=== PATIENT | male | born 1965 | race Caucasian/White ===

== ENCOUNTER 2020-07-02 11:01 | Emergency (ER) | payer OTHER ==
[2020-07-02 11:06] VITALS: BP 158/89; PULSE 80; TEMP 98.7; BMI 45.4
[2020-07-02] MEDS ORDERED: KETOROLAC TROMETHAMINE 30 MG/1 ML VIAL IVPUSH ONE (11:49)
[2020-07-02] MEDS ORDERED: SODIUM CHLORIDE 0.9% 500 ML INFUS.BAG IV ONE (11:49)
[2020-07-02 12:44] LABS: EPI CELLS 3 /uL (0-25.1); HYALINE CASTS 0 /uL (0-3.1); URINE APPEARANCE CLEAR; URINE BACTERIA 176 /uL (0-1359); URINE BILIRUBIN NEGATIVE (NEGATIVE); URINE COLOR YELLOW; URINE GLUCOSE (UA) NEGATIVE (NEGATIVE); URINE KETONE NEGATIVE (NEGATIVE); URINE LEUK ESTERASE NEGATIVE (NEGATIVE); URINE NITRITE NEGATIVE (NEGATIVE); URINE PROTEIN NEGATIVE (NEGATIVE); URINE RBC 6 /uL (0-23.9); URINE UROBILINOGEN 0.2 mg/dL (0.2-1.0); URINE WBC 3 /uL (0-25.8)
[2020-07-02 12:48] LABS: CALCIUM 9.1 mg/dL (8.5-10.1)
[2020-07-02 12:49] LABS: ALBUMIN 3.8 g/dl (3.4-5.0); BLOOD UREA NITROGEN 19.2 mg/dL (7-18)
[2020-07-02 12:53] LABS: BILIRUBIN,TOTAL 0.5 mg/dL (0.2-1); TOT PROT 7.8 g/dl (6.4-8.2)
[2020-07-02 13:52] LABS: BASO % 0.6 % (0-2.0); EOS % 2.8 % (0-4.5); HEMATOCRIT 42.7 % (35.4-49); HEMOGLOBIN 14.5 GM/dL (11.7-16.9); LYMPH % 34.4 % (8-40); MCH 31.4 pg (25.7-33.7); MEAN CELL VOLUME 92.2 fl (80-96); MONO % 9.9 % (3.8-10.2); NEUT % 52.3 % (42.8-82.8); PLATELET COUNT 271 K/MM3 (134-434); RBC 4.63 M/mm3 (4.00-5.60); RDW 13.3 % (11.9-15.9); WHITE BLOOD COUNT 7.9 K/mm3 (4.0-10.0)
== END 2020-07-02 15:01 | disposition home or self-care (01) ==
LOC: JER 11:01
PROC: 3E0333Z Introduction of Anti-inflammatory into Peripheral Vein, Percutaneous Approach (ICD-10-PCS; principal; 2020-07-02)
DX: M54.5 Low back pain (principal)
CPT/HCPCS: 36415; 74176-TC; 80053; 81003; 82550; 85025; 87086; 99284-25

== ENCOUNTER 2021-02-22 13:38 | Emergency (ER) | payer OTHER ==
[2021-02-22 13:47] VITALS: BMI 45.4
[2021-02-22] MEDS ORDERED: LIDOCAINE HCL 2% JELLY 10 ML CARTRIDGE UR ONE (15:22)
[2021-02-22] MEDS ORDERED: LIDOCAINE HCL 2% JELLY 10 ML CARTRIDGE ONE (15:55)
[2021-02-22 16:59] LABS: BASO % 0.3 % (0-2.0); HEMATOCRIT 43.9 % (35.4-49); HEMOGLOBIN 14.6 GM/dL (11.7-16.9); LYMPH % 12.5 % (8-40); MCH 30.1 pg (25.7-33.7); MCHC 33.4 g/dl (32.0-35.9); MEAN CELL VOLUME 90.2 fl (80-96); MEAN PLT VOLUME 8.6 fl (7.5-11.1); MONO % 7.4 % (3.8-10.2); NEUT % 79.8 % (42.8-82.8); PLATELET COUNT 267 10^3/uL (134-434); RBC 4.87 M/mm3 (4.00-5.60); RDW 13.6 % (11.9-15.9); WHITE BLOOD COUNT 9.7 K/mm3 (4.0-10.0)
[2021-02-22 17:01] VITALS: PULSE 105; TEMP 97.8
[2021-02-22 17:16] LABS: EPI CELLS 6 /uL (0-25.1); HYALINE CASTS 1 /uL (0-3.1); PH,URINE 5.5 (5.0-8.0); URINE APPEARANCE CLEAR; URINE BACTERIA 10 /uL (0-1359); URINE BILIRUBIN NEGATIVE (NEGATIVE); URINE COLOR DK YELLOW; URINE GLUCOSE (UA) NEGATIVE (NEGATIVE); URINE KETONE TRACE (NEGATIVE); URINE LEUK ESTERASE NEGATIVE (NEGATIVE); URINE NITRITE NEGATIVE (NEGATIVE); URINE PROTEIN 1+ (NEGATIVE); URINE RBC 34 /uL (0-23.9); URINE UROBILINOGEN 0.2 mg/dL (0.2-1.0); URINE WBC 8 /uL (0-25.8)
[2021-02-22 18:03] LABS: CALCIUM 9.3 mg/dL (8.5-10.1)
[2021-02-22 18:04] LABS: ALBUMIN 4.1 g/dl (3.4-5.0); BLOOD UREA NITROGEN 21.8 mg/dL (7-18)
[2021-02-22 18:08] LABS: BILIRUBIN,TOTAL 0.7 mg/dL (0.2-1); TOT PROT 7.6 g/dl (6.4-8.2)
[2021-02-22 18:56] VITALS: BP 178/96
== END 2021-02-22 18:58 | disposition home or self-care (01) ==
LOC: JER 13:38
DX: R33.9 Retention of urine, unspecified (principal); Z46.6 Encounter for fitting and adjustment of urinary device
CPT/HCPCS: 36415; 80053; 81003; 85025; 87086; 99283-25

== ENCOUNTER 2021-02-24 01:41 | Emergency (ER) | payer OTHER ==
[2021-02-24 02:24] VITALS: BP 155/91; PULSE 92; TEMP 98; BMI 45.4
== END 2021-02-24 03:01 | disposition home or self-care (01) ==
LOC: JER 01:41
DX: R33.9 Retention of urine, unspecified (principal)
CPT/HCPCS: 99283-25

== ENCOUNTER 2021-03-31 00:24 | Emergency (ER) | payer OTHER ==
[2021-03-31 01:08] VITALS: BP 163/96; PULSE 98; TEMP 98.3; BMI 43.8
[2021-03-31] MEDS ORDERED: LIDOCAINE HCL 2% JELLY 10 ML CARTRIDGE UR ONE (01:34)
[2021-03-31] MEDS ORDERED: LIDOCAINE HCL 2% JELLY 10 ML CARTRIDGE ONE (01:40)
[2021-03-31 02:36] LABS: EPI CELLS >36 /uL (0-25.1); HYALINE CASTS 77 /uL (0-3.1); PH,URINE 5.5 (5.0-8.0); URINE APPEARANCE CLOUDY; URINE BACTERIA 9 /uL (0-1359); URINE BILIRUBIN 2+ (NEGATIVE); URINE COLOR DK YELLOW; URINE GLUCOSE (UA) NEGATIVE (NEGATIVE); URINE KETONE 1+ (NEGATIVE); URINE LEUK ESTERASE TRACE (NEGATIVE); URINE NITRITE NEGATIVE (NEGATIVE); URINE PROTEIN 2+ (NEGATIVE); URINE WBC 60 /uL (0-25.8)
[2021-03-31 02:56] LABS: BASO % 0.1 % (0-2.0); EOS % 0.6 % (0-4.5); HEMOGLOBIN 13.4 GM/dL (11.7-16.9); LYMPH % 18.4 % (8-40); MCH 30.5 pg (25.7-33.7); MCHC 33.5 g/dl (32.0-35.9); MEAN CELL VOLUME 91.1 fl (80-96); MEAN PLT VOLUME 9.6 fl (7.5-11.1); NEUT % 70.9 % (42.8-82.8); PLATELET COUNT 245 10^3/uL (134-434); RBC 4.39 M/mm3 (4.00-5.60); RDW 14.2 % (11.9-15.9); WHITE BLOOD COUNT 9.2 K/mm3 (4.0-10.0)
[2021-03-31 03:15] LABS: ALBUMIN 3.7 g/dl (3.4-5.0); BLOOD UREA NITROGEN 13.3 mg/dL (7-18)
[2021-03-31 03:18] LABS: CREATININE 1.2 mg/dL (0.55-1.3)
[2021-03-31 03:20] LABS: BILIRUBIN,TOTAL 0.6 mg/dL (0.2-1); TOT PROT 6.8 g/dl (6.4-8.2)
[2021-03-31 03:22] LABS: URINE RBC 30 /uL (0-23.9)
[2021-03-31] MEDS ORDERED: SODIUM CHLORIDE 1,000 ML IV STA (04:22)
[2021-03-31] MEDS ORDERED: ACETAMINOPHEN 325 MG TABLET (FP) PO ONE (04:36)
[2021-03-31] MEDS ORDERED: CEFTRIAXONE 1 GM in DEXTROSE 5%-WATER - 100 ML IVPB ONE (04:39)
[2021-03-31] MEDS ORDERED: CEFTRIAXONE 1 GM/50 ML BAG ONE (04:40)
[2021-03-31] MEDS ORDERED: ACETAMINOPHEN 325 MG TABLET (FP) ONE (04:40)
== END 2021-03-31 06:35 | disposition home or self-care (01) ==
LOC: JER 00:24
PROC: 3E03329 Introduction of Other Anti-infective into Peripheral Vein, Percutaneous Approach (ICD-10-PCS; principal; 2021-03-31)
PROC: 3E0337Z Introduction of Electrolytic and Water Balance Substance into Peripheral Vein, Percutaneous Approach (ICD-10-PCS; 2021-03-31)
DX: R33.9 Retention of urine, unspecified (principal); N39.0 Urinary tract infection, site not specified
CPT/HCPCS: 36415; 80053; 81003; 85025; 87086; 99284-25

== ENCOUNTER 2021-04-07 21:29 | Emergency (ER) | payer OTHER ==
[2021-04-07 21:37] VITALS: BP 154/91; PULSE 86; TEMP 98.4; BMI 42.3
[2021-04-07] MEDS ORDERED: LIDOCAINE HCL 2% JELLY 10 ML CARTRIDGE UR ONE (22:15)
[2021-04-07] MEDS ORDERED: LIDOCAINE HCL 2% JELLY 10 ML CARTRIDGE ONE (22:15)
[2021-04-07 22:48] LABS: BASO % 0.2 % (0-2.0); EOS % 0.6 % (0-4.5); HEMATOCRIT 39.9 % (35.4-49); HEMOGLOBIN 13.5 GM/dL (11.7-16.9); MCH 30.6 pg (25.7-33.7); MCHC 33.8 g/dl (32.0-35.9); MEAN CELL VOLUME 90.5 fl (80-96); MEAN PLT VOLUME 9.1 fl (7.5-11.1); NEUT % 66.2 % (42.8-82.8); PLATELET COUNT 264 10^3/uL (134-434); WHITE BLOOD COUNT 8.2 K/mm3 (4.0-10.0)
[2021-04-07 22:59] LABS: ALBUMIN 3.7 g/dl (3.4-5.0); BLOOD UREA NITROGEN 10.4 mg/dL (7-18)
[2021-04-07 23:02] LABS: CREATININE 0.9 mg/dL (0.55-1.3)
[2021-04-07 23:03] LABS: BILIRUBIN,TOTAL 0.6 mg/dL (0.2-1); TOT PROT 6.9 g/dl (6.4-8.2)
[2021-04-07 23:16] LABS: EPI CELLS 11 /uL (0-25.1); HYALINE CASTS 5 /uL (0-3.1); URINE APPEARANCE CLEAR; URINE BACTERIA 5 /uL (0-1359); URINE BILIRUBIN NEGATIVE (NEGATIVE); URINE COLOR YELLOW; URINE GLUCOSE (UA) NEGATIVE (NEGATIVE); URINE KETONE 2+ (NEGATIVE); URINE LEUK ESTERASE NEGATIVE (NEGATIVE); URINE NITRITE NEGATIVE (NEGATIVE); URINE PROTEIN 1+ (NEGATIVE); URINE RBC 42 /uL (0-23.9); URINE WBC 9 /uL (0-25.8)
[2021-04-07] MEDS ORDERED: ACETAMINOPHEN 325 MG TABLET (FP) PO ONE (23:23)
[2021-04-07] MEDS ORDERED: ACETAMINOPHEN 325 MG TABLET (FP) ONE (23:33)
== END 2021-04-08 00:05 | disposition home or self-care (01) ==
LOC: JER 21:29
DX: R33.9 Retention of urine, unspecified (principal)
CPT/HCPCS: 36415; 76775-TC; 76857; 80053; 81003; 85025; 87086; 99284-25

== ENCOUNTER 2021-04-13 23:39 | Emergency (ER) | payer OTHER ==
[2021-04-13 23:47] VITALS: BMI 41.5
[2021-04-14] MEDS ORDERED: ASPIRIN 81 MG CHEWABLE TABLETS PO ONE (00:39)
[2021-04-14] MEDS ORDERED: ASPIRIN 81 MG CHEWABLE TABLETS ONE (01:05)
[2021-04-14 01:56] LABS: BASO % 0.3 % (0-2.0); EOS % 1.7 % (0-4.5); HEMATOCRIT 38.9 % (35.4-49); HEMOGLOBIN 13.8 GM/dL (11.7-16.9); LYMPH % 28.1 % (8-40); MCH 31.8 pg (25.7-33.7); MCHC 35.6 g/dl (32.0-35.9); MEAN CELL VOLUME 89.1 fl (80-96); MEAN PLT VOLUME 9.4 fl (7.5-11.1); MONO % 11.9 % (3.8-10.2); PLATELET COUNT 252 10^3/uL (134-434); RBC 4.36 M/mm3 (4.00-5.60); WHITE BLOOD COUNT 8.2 K/mm3 (4.0-10.0)
[2021-04-14 02:03] LABS: INR 1.18 (0.83-1.09); PROTHROMBIN TIME (PATIENT) 13.6 SEC (9.7-13.0)
[2021-04-14 02:06] LABS: ACTIVATED PTT 33.7 SECONDS (25.2-36.5)
[2021-04-14 02:16] LABS: CALCIUM 8.9 mg/dL (8.5-10.1)
[2021-04-14 02:17] LABS: ALBUMIN 3.6 g/dl (3.4-5.0); BLOOD UREA NITROGEN 9.9 mg/dL (7-18); MAGNESIUM 1.6 mg/dL (1.8-2.4)
[2021-04-14 02:20] LABS: CREATININE 0.9 mg/dL (0.55-1.3)
[2021-04-14 02:22] LABS: BILIRUBIN,TOTAL 0.7 mg/dL (0.2-1); TOT PROT 6.9 g/dl (6.4-8.2)
[2021-04-14 08:46] LABS: EPI CELLS 18 /uL (0-25.1); HYALINE CASTS 5 /uL (0-3.1); PH,URINE 6.5 (5.0-8.0); URINE APPEARANCE CLEAR; URINE BACTERIA 14 /uL (0-1359); URINE BILIRUBIN NEGATIVE (NEGATIVE); URINE COLOR DK YELLOW; URINE GLUCOSE (UA) NEGATIVE (NEGATIVE); URINE KETONE TRACE (NEGATIVE); URINE LEUK ESTERASE NEGATIVE (NEGATIVE); URINE NITRITE NEGATIVE (NEGATIVE); URINE PROTEIN 1+ (NEGATIVE); URINE RBC 651 /uL (0-23.9); URINE WBC 22 /uL (0-25.8)
[2021-04-14 09:16] VITALS: BP 146/86; PULSE 60; TEMP 98.3
[2021-04-15 13:07] LABS: SARS-CoV-2 NAA Not Detected (Not Detected)
== END 2021-04-14 09:34 | disposition home or self-care (01) ==
LOC: JER 23:39
DX: R06.00 Dyspnea, unspecified (principal)
CPT/HCPCS: 36415; 71046-TC-FY; 71275-TC; 80053; 81003; 83735; 83880; 84484; 85025; 85610; 85730; 87804; 93005; 93010; 99285-25; C9803; U0003; U0005

== ENCOUNTER 2021-04-27 04:33 | Emergency (ER) | payer OTHER ==
[2021-04-27 04:49] VITALS: TEMP 98.3; BMI 40.7
[2021-04-27] MEDS ORDERED: LIDOCAINE HCL 2% JELLY 10 ML CARTRIDGE ONE ×2 (04:55→06:38)
[2021-04-27] MEDS ORDERED: LIDOCAINE HCL 2% JELLY 10 ML CARTRIDGE UR ONE (04:56)
[2021-04-27] MEDS ORDERED: SULFAMETHOXAZOLE/TRIMETHOPRIM 800MG/160MG D.S. TABLET PO ONE (05:11)
[2021-04-27] MEDS ORDERED: SULFAMETHOXAZOLE/TRIMETHOPRIM 800MG/160MG D.S. TABLET ONE (06:53)
[2021-04-27 09:08] LABS: URINE COLOR DARK YELLOW
[2021-04-27 09:09] LABS: URINE APPEARANCE CLOUDY
[2021-04-27 09:10] LABS: URINE BILIRUBIN 2+ (NEGATIVE); URINE GLUCOSE (UA) NEGATIVE (NEGATIVE); URINE KETONE 3+ (NEGATIVE)
[2021-04-27 09:11] LABS: PH,URINE 5.5 (5.0-8.0); URINE NITRITE NEGATIVE (NEGATIVE); URINE PROTEIN 2+ (NEGATIVE)
[2021-04-27 09:12] LABS: EPI CELLS 15.5 /uL (0-25.1); HYALINE CASTS 38.16 /uL (0-3.1); URINE BACTERIA 99.9 /uL (0-1359); URINE LEUK ESTERASE 1+ (NEGATIVE); URINE RBC 2243 /uL (0-23.9); URINE WBC 788.5 /uL (0-25.8)
[2021-04-27] MEDS ORDERED: ACETAMINOPHEN 325 MG TABLET (FP) PO ONE (09:32)
[2021-04-27] MEDS ORDERED: ACETAMINOPHEN 325 MG TABLET (FP) ONE (09:40)
[2021-04-27] MEDS ORDERED: LOSARTAN POTASSIUM 50 MG TABLET PO ONE (09:56)
[2021-04-27] MEDS ORDERED: FINASTERIDE 5 MG TABLET (FP) PO SCH (10:00)
[2021-04-27] MEDS ORDERED: LOSARTAN POTASSIUM 50 MG TABLET ONE (10:02)
[2021-04-27 10:53] VITALS: BP 158/96; PULSE 100
== END 2021-04-27 10:54 | disposition home or self-care (01) ==
LOC: JER 04:33
DX: T83.091A Other mechanical complication of indwelling urethral catheter, initial encounter (principal)
CPT/HCPCS: 81003; 87086; 87186; 99283-25

== ENCOUNTER 2021-05-02 10:12 | Emergency (ER) | payer OTHER ==
[2021-05-02 10:34] VITALS: BMI 42.3
[2021-05-02 13:04] LABS: EPI CELLS 7 /uL (0-25.1); HYALINE CASTS 10 /uL (0-3.1); PH,URINE 5.5 (5.0-8.0); URINE APPEARANCE TURBID; URINE BACTERIA 133 /uL (0-1359); URINE BILIRUBIN 2+ (NEGATIVE); URINE COLOR DK YELLOW; URINE GLUCOSE (UA) NEGATIVE (NEGATIVE); URINE KETONE 2+ (NEGATIVE); URINE LEUK ESTERASE 2+ (NEGATIVE); URINE NITRITE NEGATIVE (NEGATIVE); URINE PROTEIN 2+ (NEGATIVE); URINE RBC 78 /uL (0-23.9); URINE WBC 3561 /uL (0-25.8)
[2021-05-02 13:24] LABS: BASO % 0.3 % (0-2.0); EOS % 1.2 % (0-4.5); HEMATOCRIT 41.1 % (35.4-49); HEMOGLOBIN 13.9 GM/dL (11.7-16.9); LYMPH % 20.1 % (8-40); MCH 30.5 pg (25.7-33.7); MCHC 33.9 g/dl (32.0-35.9); MEAN CELL VOLUME 89.8 fl (80-96); MEAN PLT VOLUME 9.7 fl (7.5-11.1); MONO % 12.8 % (3.8-10.2); NEUT % 65.6 % (42.8-82.8); PLATELET COUNT 223 10^3/uL (134-434); RBC 4.57 M/mm3 (4.00-5.60)
[2021-05-02 13:55] LABS: ALBUMIN 3.7 g/dl (3.4-5.0); CALCIUM 9.3 mg/dL (8.5-10.1)
[2021-05-02 13:56] LABS: BLOOD UREA NITROGEN 9.7 mg/dL (7-18)
[2021-05-02 13:58] LABS: CREATININE 0.9 mg/dL (0.55-1.3)
[2021-05-02 14:00] LABS: BILIRUBIN,TOTAL 0.8 mg/dL (0.2-1); TOT PROT 6.8 g/dl (6.4-8.2)
[2021-05-02] MEDS ORDERED: CIPROFLOXACIN 500 MG TABLET (RESTRICTED TO ID) PO ONE (14:14)
[2021-05-02 14:40] VITALS: BP 158/92; PULSE 76; TEMP 98
[2021-05-02 15:51] LABS: URINE CRYSTALS 0-2 /hpf
== END 2021-05-02 14:40 | disposition home or self-care (01) ==
LOC: JER 10:12
DX: N30.01 Acute cystitis with hematuria (principal)
CPT/HCPCS: 36415; 80053; 81003; 85025; 87077; 87086; 99283-25

== ENCOUNTER 2021-05-04 04:25 | Day surgery (SDC) | payer OTHER ==
[2021-04-30 09:18] VITALS: BMI 41.5
[2021-05-04] MEDS ORDERED: ACETAMINOPHEN 1000 MG/100 ML BAG IVPB ONE (13:37)
[2021-05-04] MEDS ORDERED: DEXTROSE 5%-0.45% SALINE 1,000 ML IV SCH (13:45)
[2021-05-04] MEDS ORDERED: PROPOFOL 20 ML ONE (13:46)
[2021-05-04] MEDS ORDERED: GLYCOPYRROLATE 0.2 MG/1 ML VIAL ONE (13:47)
[2021-05-04] MEDS ORDERED: MIDAZOLAM HCL 2 MG/2 ML SINGLE DOSE VIAL ONE (13:47)
[2021-05-04] MEDS ORDERED: ceFAZolin SODIUM 1 GM VIAL ONE (13:52)
[2021-05-04] MEDS ORDERED: ONDANSETRON 4 MG/2 ML VIAL IVPUSH PRN (13:54)
[2021-05-04] MEDS ORDERED: PROMETHAZINE HCL 25 MG/1 ML VIAL IVPB PRN (13:54)
[2021-05-04] MEDS ORDERED: oxyCODONE HCL 5 MG TABLET PO PRN (13:54)
[2021-05-04] MEDS ORDERED: ceFAZolin 2 GRAM PREMIX BAG IVPB ONE (13:59)
[2021-05-04] MEDS ORDERED: LACTATED RINGERS SOLUTION 1,000 ML IV SCH (14:00)
[2021-05-04] MEDS ORDERED: ONDANSETRON 4 MG/2 ML VIAL ONE (14:07)
[2021-05-04] MEDS ORDERED: DEXAMETHASONE SOD PHOSPHATE 4 MG/1 ML VIAL ONE (14:07)
[2021-05-04] MEDS ORDERED: ACETAMINOPHEN INJECTION 100 ML IVPB ONE (14:48)
[2021-05-04] MEDS ORDERED: oxyCODONE HCL 5 MG TABLET ONE (17:23)
[2021-05-04 18:16] VITALS: TEMP 98.3
[2021-05-04 19:39] VITALS: BP 138/72; PULSE 72
== END 2021-05-04 19:28 | disposition home or self-care (01) ==
LOC: JASU-SURG 04:25
PROVIDERS: ATTEND Urology
PROC: 0VT08ZZ Resection of Prostate, Via Natural or Artificial Opening Endoscopic (ICD-10-PCS; principal; 2021-05-04 14:30)
DX: N40.1 Benign prostatic hyperplasia with lower urinary tract symptoms (principal); R33.8 Other retention of urine
CPT/HCPCS: 88305-TC; 94760

== ENCOUNTER 2021-05-14 20:48 | Inpatient (IN) | payer OTHER ==
[2021-05-14] MEDS ORDERED: PIPERACILLIN/TAZOB 4.5 GM 4.5 GM in DEXTROSE 5%-WATER 100 ML IVPB ONE (23:22)
[2021-05-14] MEDS ORDERED: LACTATED RINGERS SOLUTION 1000 ML INFUS.BAG IV ONE (23:22)
[2021-05-14] MEDS ORDERED: PIPERACILLIN/TAZOB 4.5 GM 4.5 GM/100 ML BAG IVPB ONE (23:37)
[2021-05-14 23:47] LABS: EPI CELLS 3 /uL (0-25.1); HYALINE CASTS 12 /uL (0-3.1); PH,URINE 5.5 (5.0-8.0); URINE APPEARANCE CLOUDY; URINE BACTERIA 15 /uL (0-1359); URINE BILIRUBIN 2+ (NEGATIVE); URINE COLOR DK YELLOW; URINE GLUCOSE (UA) NEGATIVE (NEGATIVE); URINE KETONE 3+ (NEGATIVE); URINE LEUK ESTERASE 1+ (NEGATIVE); URINE NITRITE NEGATIVE (NEGATIVE); URINE PROTEIN 2+ (NEGATIVE); URINE RBC 2102 /uL (0-23.9); URINE WBC 897 /uL (0-25.8)
[2021-05-14 23:49] LABS: BASO % 0.3 % (0-2.0); EOS % 0.8 % (0-4.5); HEMATOCRIT 44.4 % (35.4-49); LYMPH % 20.5 % (8-40); MCH 30.4 pg (25.7-33.7); MCHC 33.8 g/dl (32.0-35.9); MEAN CELL VOLUME 89.9 fl (80-96); MEAN PLT VOLUME 9.7 fl (7.5-11.1); MONO % 10.9 % (3.8-10.2); NEUT % 67.5 % (42.8-82.8); PLATELET COUNT 264 10^3/uL (134-434); RBC 4.94 M/mm3 (4.00-5.60); WHITE BLOOD COUNT 10.9 K/mm3 (4.0-10.0)
[2021-05-15 00:05] LABS: ALBUMIN 3.6 g/dl (3.4-5.0); BLOOD UREA NITROGEN 14.8 mg/dL (7-18); CALCIUM 8.8 mg/dL (8.5-10.1)
[2021-05-15 00:10] LABS: BILIRUBIN,TOTAL 0.6 mg/dL (0.2-1); TOT PROT 7.1 g/dl (6.4-8.2)
[2021-05-15] MEDS ORDERED: FINASTERIDE 5 MG TABLET (FP) PO SCH (02:00)
[2021-05-15] MEDS: TAMSULOSIN HCL 0.4 MG CAP PO SCH (08:58)
[2021-05-15] MEDS ORDERED: TAMSULOSIN HCL 0.4 MG CAP ONE (08:59)
[2021-05-15] MEDS ORDERED: PIPERACILLIN/TAZOB 3.375 GM 3.375 GM in DEXTROSE 5%-WATER - 50 ML IVPB SCH (10:00)
[2021-05-15] MEDS ORDERED: PHENAZOPYRIDINE HCL 100 MG TABLET (FP) PO ONE (10:00)
[2021-05-15] MEDS ORDERED: ENOXAPARIN NA (PORCINE) 40 MG/0.4 ML DISP.SYRIN SQ SCH (10:00)
[2021-05-15] MEDS ORDERED: DEXTROSE 5%-WATER - 50 ML IVPB ONE ×2 (10:44→17:21)
[2021-05-15] MEDS ORDERED: PIPERACILLIN/TAZOBACTAM 3.375 GM VIAL IVPB ONE ×2 (10:44→17:20)
[2021-05-15] MEDS: LOSARTAN POTASSIUM 50 MG TABLET PO SCH (10:48)
[2021-05-15 11:11] VITALS: BMI 41.5
[2021-05-15] MEDS: ACETAMINOPHEN 1000 MG/100 ML BAG IVPB PRN ×2 (11:44→21:14)
[2021-05-15] MEDS: PIPERACILLIN/TAZOB 3.375 GM 3.375 GM in DEXTROSE 5%-WATER - 50 ML IVPB SCH (17:25)
[2021-05-16] MEDS ORDERED: DEXTROSE 5%-WATER - 50 ML IVPB ONE ×3 (01:09→16:50)
[2021-05-16] MEDS ORDERED: PIPERACILLIN/TAZOBACTAM 3.375 GM VIAL IVPB ONE ×3 (01:09→16:50)
[2021-05-16] MEDS: PIPERACILLIN/TAZOB 3.375 GM 3.375 GM in DEXTROSE 5%-WATER - 50 ML IVPB SCH ×3 (01:23→17:21)
[2021-05-16 08:59] LABS: BASO % 0.3 % (0-2.0); HEMATOCRIT 40.8 % (35.4-49); HEMOGLOBIN 13.8 GM/dL (11.7-16.9); MCH 30.6 pg (25.7-33.7); MCHC 33.9 g/dl (32.0-35.9); MEAN CELL VOLUME 90.3 fl (80-96); MEAN PLT VOLUME 10.4 fl (7.5-11.1); MONO % 12.5 % (3.8-10.2); NEUT % 48.2 % (42.8-82.8); PLATELET COUNT 218 10^3/uL (134-434); RBC 4.52 M/mm3 (4.00-5.60); RDW 14.3 % (11.9-15.9); WHITE BLOOD COUNT 8.8 K/mm3 (4.0-10.0)
[2021-05-16 09:17] LABS: CALCIUM 8.6 mg/dL (8.5-10.1)
[2021-05-16 09:18] LABS: ALBUMIN 3.1 g/dl (3.4-5.0); BLOOD UREA NITROGEN 14.3 mg/dL (7-18); MAGNESIUM 1.7 mg/dL (1.8-2.4)
[2021-05-16 09:22] LABS: PHOSPHOROUS 3.3 mg/dL (2.5-4.9)
[2021-05-16] MEDS: LOSARTAN POTASSIUM 50 MG TABLET PO SCH (09:22)
[2021-05-16] MEDS: TAMSULOSIN HCL 0.4 MG CAP PO SCH (09:22)
[2021-05-16 09:26] LABS: BILIRUBIN,TOTAL 0.8 mg/dL (0.2-1); TOT PROT 6.2 g/dl (6.4-8.2)
[2021-05-16] MEDS: ACETAMINOPHEN 1000 MG/100 ML BAG IVPB PRN (11:54)
[2021-05-16 13:35] VITALS: BP 142/75; PULSE 75; TEMP 99.9
[2021-05-17] MEDS ORDERED: FINASTERIDE 5 MG TABLET (FP) PO SCH (10:00)
== END 2021-05-16 18:04 | disposition home or self-care (01) | DRG 920 ==
LOC: JER 20:48 → JERBED 05-15 00:11 → J4S 05-15 09:26
PROVIDERS: ADMIT Internal Medicine; ATTEND Family Medicine
DX: T81.89XA Other complications of procedures, not elsewhere classified, initial encounter (principal); N39.0 Urinary tract infection, site not specified; Z68.41 Body mass index [BMI] 40.0-44.9, adult; G89.18 Other acute postprocedural pain; Y83.9 Surgical procedure, unspecified as the cause of abnormal reaction of the patient, or of later complication, without mention of misadventure at the time of the procedure; N40.1 Benign prostatic hyperplasia with lower urinary tract symptoms; I10 Essential (primary) hypertension; E78.5 Hyperlipidemia, unspecified; E66.9 Obesity, unspecified; D72.829 Elevated white blood cell count, unspecified; K21.9 Gastro-esophageal reflux disease without esophagitis; R33.9 Retention of urine, unspecified; R31.9 Hematuria, unspecified; R30.0 Dysuria
CPT/HCPCS: 36415; 76775-TC; 76856-TC; 80053; 81003; 83735; 84100; 85025; 87077; 87086; 93005; 93010; 99285-25; C9803-CS; U0003; U0005

== ENCOUNTER 2021-05-22 12:50 | Emergency (ER) | payer OTHER ==
[2021-05-22 12:58] VITALS: TEMP 97.5; BMI 41.5
[2021-05-22 14:29] LABS: BASO % 0.2 % (0-2.0); EOS % 0.3 % (0-4.5); HEMATOCRIT 44.4 % (35.4-49); HEMOGLOBIN 14.9 GM/dL (11.7-16.9); LYMPH % 24.6 % (8-40); MCH 30.1 pg (25.7-33.7); MCHC 33.6 g/dl (32.0-35.9); MEAN CELL VOLUME 89.7 fl (80-96); MEAN PLT VOLUME 9.8 fl (7.5-11.1); MONO % 9.8 % (3.8-10.2); NEUT % 65.1 % (42.8-82.8); PLATELET COUNT 261 10^3/uL (134-434); RBC 4.95 M/mm3 (4.00-5.60); RDW 14.4 % (11.9-15.9); WHITE BLOOD COUNT 6.7 K/mm3 (4.0-10.0)
[2021-05-22 14:51] VITALS: BP 156/80; PULSE 78
[2021-05-22 14:58] LABS: CALCIUM 9.2 mg/dL (8.5-10.1)
[2021-05-22 14:59] LABS: BLOOD UREA NITROGEN 8.8 mg/dL (7-18)
[2021-05-22 15:02] LABS: CREATININE 0.8 mg/dL (0.55-1.3)
[2021-05-22 15:03] LABS: BILIRUBIN,TOTAL 0.6 mg/dL (0.2-1)
[2021-05-22 15:04] LABS: TOT PROT 7.3 g/dl (6.4-8.2)
[2021-05-22] MEDS ORDERED: ACETAMINOPHEN 325 MG TABLET (FP) PO ONE (15:37)
[2021-05-22] MEDS ORDERED: ACETAMINOPHEN 325 MG TABLET (FP) ONE (15:40)
[2021-05-22] MEDS ORDERED: LACTATED RINGERS SOLUTION 1000 ML INFUS.BAG IV ONE (16:25)
== END 2021-05-22 18:41 | disposition left against medical advice (07) ==
LOC: JER 12:50
DX: R30.0 Dysuria (principal)
CPT/HCPCS: 36415; 70450-TC; 80053; 85025; 93005; 93010; 99285-25

== ENCOUNTER 2021-06-06 18:57 | Emergency (ER) | payer OTHER ==
[2021-06-06 19:08] VITALS: BP 142/95; PULSE 78; BMI 42.3
[2021-06-06 19:09] VITALS: TEMP 97.2
[2021-06-06 22:57] LABS: EPI CELLS 4 /uL (0-25.1); HYALINE CASTS 2 /uL (0-3.1); URINE APPEARANCE CLOUDY; URINE BACTERIA 25 /uL (0-1359); URINE BILIRUBIN 2+ (NEGATIVE); URINE COLOR DK YELLOW; URINE GLUCOSE (UA) NEGATIVE (NEGATIVE); URINE KETONE 2+ (NEGATIVE); URINE LEUK ESTERASE 2+ (NEGATIVE); URINE NITRITE NEGATIVE (NEGATIVE); URINE PROTEIN 2+ (NEGATIVE); URINE RBC 257 /uL (0-23.9); URINE WBC 1487 /uL (0-25.8)
== END 2021-06-07 00:06 | disposition home or self-care (01) ==
LOC: JER 18:57
DX: N39.0 Urinary tract infection, site not specified (principal)
CPT/HCPCS: 36415; 81003; 87086; 87491; 87591; 99283-25

== ENCOUNTER 2021-06-12 01:19 | Inpatient (IN) | payer OTHER ==
[2021-06-12] MEDS ORDERED: ACETAMINOPHEN 500 MG TABLET (FP) PO ONE (02:55)
[2021-06-12 02:56] LABS: EPI CELLS 2 /uL (0-25.1); HYALINE CASTS 4 /uL (0-3.1); PH,URINE 5.5 (5.0-8.0); URINE APPEARANCE CLOUDY; URINE BACTERIA 21 /uL (0-1359); URINE BILIRUBIN 2+ (NEGATIVE); URINE COLOR DK YELLOW; URINE GLUCOSE (UA) NEGATIVE (NEGATIVE); URINE KETONE 3+ (NEGATIVE); URINE LEUK ESTERASE 2+ (NEGATIVE); URINE NITRITE NEGATIVE (NEGATIVE); URINE PROTEIN 2+ (NEGATIVE); URINE WBC 4016 /uL (0-25.8)
[2021-06-12] MEDS ORDERED: SODIUM CHLORIDE 0.9% 500 ML INFUS.BAG IV ONE (03:12)
[2021-06-12] MEDS ORDERED: ACETAMINOPHEN 325 MG TABLET (FP) ONE (03:27)
[2021-06-12 04:02] LABS: BASO % 0.2 % (0-2.0); EOS % 0.2 % (0-4.5); HEMATOCRIT 45.2 % (35.4-49); HEMOGLOBIN 15.4 GM/dL (11.7-16.9); LYMPH % 15.6 % (8-40); MCHC 33.9 g/dl (32.0-35.9); MEAN CELL VOLUME 88.4 fl (80-96); MEAN PLT VOLUME 9.5 fl (7.5-11.1); MONO % 9.2 % (3.8-10.2); NEUT % 74.8 % (42.8-82.8); PLATELET COUNT 271 10^3/uL (134-434); RBC 5.12 M/mm3 (4.00-5.60); RDW 14.4 % (11.9-15.9); WHITE BLOOD COUNT 8.7 K/mm3 (4.0-10.0)
[2021-06-12 04:20] LABS: CALCIUM 9.3 mg/dL (8.5-10.1)
[2021-06-12 04:21] LABS: ALBUMIN 3.9 g/dl (3.4-5.0); BLOOD UREA NITROGEN 13.8 mg/dL (7-18)
[2021-06-12 04:24] LABS: CREATININE 0.9 mg/dL (0.55-1.3)
[2021-06-12 04:25] LABS: BILIRUBIN,TOTAL 0.7 mg/dL (0.2-1)
[2021-06-12 04:26] LABS: TOT PROT 7.3 g/dl (6.4-8.2)
[2021-06-12] MEDS ORDERED: PHENAZOPYRIDINE HCL 100 MG TABLET (FP) PO ONE ×2 (07:04→15:00)
[2021-06-12] MEDS ORDERED: PHENAZOPYRIDINE HCL 100 MG TABLET (FP) ONE (08:04)
[2021-06-12] MEDS ORDERED: TAMSULOSIN HCL 0.4 MG CAP ONE (08:05)
[2021-06-12 08:14] LABS: URINE RBC 386.9 /uL (0-23.9)
[2021-06-12 08:15] LABS: YEAST NEGATIVE (NEGATIVE)
[2021-06-12] MEDS ORDERED: TAMSULOSIN HCL 0.4 MG CAP PO SCH (08:30)
[2021-06-12] MEDS: ACETAMINOPHEN 325 MG TABLET (FP) PO PRN ×3 (09:23→23:59)
[2021-06-12 10:06] VITALS: BMI 36.3
[2021-06-12] MEDS: DEXTROSE 5%-0.45% SALINE 1,000 ML IV SCH (12:11)
[2021-06-12] MEDS ORDERED: ACETAMINOPHEN 325 MG TABLET (FP) PO ONE (14:50)
[2021-06-12] MEDS ORDERED: PIPERACILLIN/TAZOB 3.375 GM 3.375 GM in DEXTROSE 5%-WATER - 50 ML IVPB SCH (15:00)
[2021-06-12] MEDS ORDERED: DEXTROSE 5%-WATER - 50 ML IVPB ONE ×2 (15:32→22:31)
[2021-06-12] MEDS ORDERED: PIPERACILLIN/TAZOBACTAM 3.375 GM VIAL IVPB ONE ×2 (15:32→22:31)
[2021-06-12] MEDS: PIPERACILLIN/TAZOB 3.375 GM 3.375 GM in DEXTROSE 5%-WATER - 50 ML IVPB SCH ×2 (16:05→22:37)
[2021-06-12] MEDS: TAMSULOSIN HCL 0.4 MG CAP PO SCH (21:08)
[2021-06-13] MEDS ORDERED: DEXTROSE 5%-WATER - 50 ML IVPB ONE (05:22)
[2021-06-13] MEDS ORDERED: PIPERACILLIN/TAZOBACTAM 3.375 GM VIAL IVPB ONE (05:22)
[2021-06-13] MEDS: PIPERACILLIN/TAZOB 3.375 GM 3.375 GM in DEXTROSE 5%-WATER - 50 ML IVPB SCH (06:20)
[2021-06-13 09:50] LABS: BASO % 0.2 % (0-2.0); EOS % 0.8 % (0-4.5); HEMOGLOBIN 13.9 GM/dL (11.7-16.9); LYMPH % 24.7 % (8-40); MEAN CELL VOLUME 88.3 fl (80-96); MEAN PLT VOLUME 9.9 fl (7.5-11.1); MONO % 13.5 % (3.8-10.2); NEUT % 60.8 % (42.8-82.8); PLATELET COUNT 228 10^3/uL (134-434); RBC 4.64 M/mm3 (4.00-5.60); RDW 14.9 % (11.9-15.9); WHITE BLOOD COUNT 6.8 K/mm3 (4.0-10.0)
[2021-06-13 10:17] LABS: ALBUMIN 3.2 g/dl (3.4-5.0); BLOOD UREA NITROGEN 7.9 mg/dL (7-18); CALCIUM 8.5 mg/dL (8.5-10.1)
[2021-06-13 10:19] LABS: BILIRUBIN,TOTAL 0.8 mg/dL (0.2-1)
[2021-06-13] MEDS ORDERED: PIPERACILLIN/TAZOB 3.375 GM 3.375 GM in DEXTROSE 5%-WATER - 50 ML IVPB SCH (15:00)
[2021-06-13] MEDS: VALSARTAN 40 MG TABLET PO SCH (15:15)
[2021-06-13] MEDS: DEXTROSE 5%-0.45% SALINE 1,000 ML IV SCH ×3 (19:24→20:42)
[2021-06-13] MEDS ORDERED: POTASSIUM CHLORIDE TABS 20 MEQ TABLET.ER (FP) PO ONE (20:53)
[2021-06-13] MEDS: TAMSULOSIN HCL 0.4 MG CAP PO SCH (22:07)
[2021-06-14] MEDS: ACETAMINOPHEN 325 MG TABLET (FP) PO PRN ×2 (02:36→23:25)
[2021-06-14] MEDS ORDERED: PHENAZOPYRIDINE HCL 100 MG TABLET (FP) PO ONE (04:56)
[2021-06-14 08:28] LABS: BASO % 0.2 % (0-2.0); EOS % 0.9 % (0-4.5); HEMOGLOBIN 12.7 GM/dL (11.7-16.9); LYMPH % 24.5 % (8-40); MCH 29.6 pg (25.7-33.7); MCHC 33.3 g/dl (32.0-35.9); MEAN CELL VOLUME 88.7 fl (80-96); MEAN PLT VOLUME 10.2 fl (7.5-11.1); MONO % 14.1 % (3.8-10.2); NEUT % 60.3 % (42.8-82.8); PLATELET COUNT 237 10^3/uL (134-434); RBC 4.29 M/mm3 (4.00-5.60); RDW 14.5 % (11.9-15.9); WHITE BLOOD COUNT 8.1 K/mm3 (4.0-10.0)
[2021-06-14 08:49] LABS: ALBUMIN 2.9 g/dl (3.4-5.0); BLOOD UREA NITROGEN 5.8 mg/dL (7-18); CALCIUM 8.3 mg/dL (8.5-10.1); CREATININE 0.9 mg/dL (0.55-1.3)
[2021-06-14 08:55] LABS: TOT PROT 5.7 g/dl (6.4-8.2)
[2021-06-14 08:56] LABS: BILIRUBIN,TOTAL 0.5 mg/dL (0.2-1)
[2021-06-14] MEDS: VALSARTAN 40 MG TABLET PO SCH (09:24)
[2021-06-14] MEDS ORDERED: POTASSIUM CHLORIDE TABS 20 MEQ TABLET.ER (FP) PO ONE (15:22)
[2021-06-14] MEDS: DEXTROSE 5%-0.45% SALINE 1,000 ML IV SCH (15:24)
[2021-06-14] MEDS: ESCITALOPRAM OXALATE 10 MG TABLET PO SCH (16:29)
[2021-06-14] MEDS: TAMSULOSIN HCL 0.4 MG CAP PO SCH (21:53)
[2021-06-15] MEDS: DEXTROSE 5%-0.45% SALINE 1,000 ML IV SCH (06:00)
[2021-06-15] MEDS: ACETAMINOPHEN 325 MG TABLET (FP) PO PRN ×3 (06:15→22:02)
[2021-06-15 08:37] LABS: BLOOD UREA NITROGEN 3.5 mg/dL (7-18); CALCIUM 8.4 mg/dL (8.5-10.1); MAGNESIUM 1.5 mg/dL (1.8-2.4)
[2021-06-15 08:40] LABS: CREATININE 0.6 mg/dL (0.55-1.3)
[2021-06-15] MEDS: VALSARTAN 40 MG TABLET PO SCH (09:53)
[2021-06-15] MEDS: ESCITALOPRAM OXALATE 10 MG TABLET PO SCH (09:53)
[2021-06-15] MEDS: TAMSULOSIN HCL 0.4 MG CAP PO SCH (21:07)
[2021-06-16] MEDS: ACETAMINOPHEN 325 MG TABLET (FP) PO PRN (06:57)
[2021-06-16] MEDS ORDERED: MAGNESIUM SULF 50% (8.12 MEQ/2 ML-1 GM VIAL) IVPB ONE (08:19)
[2021-06-16] MEDS ORDERED: POTASSIUM CHLORIDE TABS 10 MEQ TABLET.ER (FP) PO ONE (08:19)
[2021-06-16] MEDS: VALSARTAN 40 MG TABLET PO SCH ×2 (12:07→13:34)
[2021-06-16] MEDS: ESCITALOPRAM OXALATE 10 MG TABLET PO SCH (12:07)
[2021-06-16 13:49] VITALS: TEMP 98.1
[2021-06-16] MEDS ORDERED: VALSARTAN 80 MG TABLET PO ONE (16:06)
[2021-06-16 21:11] VITALS: BP 124/88; PULSE 99
== END 2021-06-16 20:31 | disposition home or self-care (01) | DRG 690 ==
LOC: JER 01:19 → JERBED 05:33 → OBSVTOIN 06:58 → J5S 08:26
PROVIDERS: ADMIT Family Medicine; ATTEND Family Medicine
DX: N39.0 Urinary tract infection, site not specified (principal); N40.1 Benign prostatic hyperplasia with lower urinary tract symptoms; I10 Essential (primary) hypertension; R63.0 Anorexia; E66.9 Obesity, unspecified; Z68.36 Body mass index [BMI] 36.0-36.9, adult; R30.0 Dysuria; N50.819 Testicular pain, unspecified; F06.8 Other specified mental disorders due to known physiological condition; F41.8 Other specified anxiety disorders; R31.9 Hematuria, unspecified
CPT/HCPCS: 36415; 74177-TC; 76870-TC; 80048; 80053; 81003; 83735; 84443; 85025; 85651; 86140; 87040; 87077; 87081; 87086; 93005; 93010; 97116-GP; 97161-GP; 99285-25; C9803-CS; G0378; Q9967; U0003; U0005

== ENCOUNTER 2021-06-18 10:32 | Inpatient (IN) | payer OTHER ==
[2021-06-18 13:18] LABS: BASO % 0.3 % (0-2.0); EOS % 0.4 % (0-4.5); HEMATOCRIT 39.2 % (35.4-49); LYMPH % 18.5 % (8-40); MCH 29.6 pg (25.7-33.7); MCHC 33.2 g/dl (32.0-35.9); MEAN CELL VOLUME 89.3 fl (80-96); NEUT % 68.8 % (42.8-82.8); PLATELET COUNT 271 10^3/uL (134-434); RBC 4.39 M/mm3 (4.00-5.60); RDW 14.9 % (11.9-15.9); WHITE BLOOD COUNT 9.2 K/mm3 (4.0-10.0)
[2021-06-18] MEDS ORDERED: ACETAMINOPHEN 500 MG TABLET (FP) PO ONE (13:29)
[2021-06-18] MEDS ORDERED: ACETAMINOPHEN 325 MG TABLET (FP) ONE (13:31)
[2021-06-18 13:36] LABS: EPI CELLS 6 /uL (0-25.1); HYALINE CASTS 2 /uL (0-3.1); URINE APPEARANCE CLEAR; URINE BACTERIA 3 /uL (0-1359); URINE BILIRUBIN NEGATIVE (NEGATIVE); URINE COLOR YELLOW; URINE GLUCOSE (UA) NEGATIVE (NEGATIVE); URINE KETONE NEGATIVE (NEGATIVE); URINE LEUK ESTERASE 1+ (NEGATIVE); URINE NITRITE NEGATIVE (NEGATIVE); URINE PROTEIN NEGATIVE (NEGATIVE); URINE RBC 16 /uL (0-23.9); URINE WBC 99 /uL (0-25.8)
[2021-06-18 13:37] LABS: CALCIUM 8.9 mg/dL (8.5-10.1)
[2021-06-18 13:38] LABS: ALBUMIN 3.1 g/dl (3.4-5.0); BLOOD UREA NITROGEN 7.8 mg/dL (7-18)
[2021-06-18 13:41] LABS: CREATININE 0.7 mg/dL (0.55-1.3)
[2021-06-18 13:43] LABS: BILIRUBIN,TOTAL 0.7 mg/dL (0.2-1)
[2021-06-18] MEDS ORDERED: KETOROLAC TROMETHAMINE 15 MG/ML VIAL IVPUSH ONE (14:36)
[2021-06-18] MEDS ORDERED: LACTATED RINGERS SOLUTION 1000 ML INFUS.BAG IV ONE (14:37)
[2021-06-18] MEDS ORDERED: KETOROLAC TROMETHAMINE 15 MG/ML VIAL ONE (14:44)
[2021-06-18] MEDS ORDERED: POLYETHYLENE GLYCOL (HEALTHYLAX) 3350 17 GM PACKET PO PRN (18:22)
[2021-06-18] MEDS ORDERED: POTASSIUM CHLORIDE TABS 20 MEQ TABLET.ER (FP) PO ONE ×2 (18:47→19:02)
[2021-06-18 20:26] VITALS: BMI 36.3
[2021-06-18] MEDS: GABAPENTIN 100 MG CAPSULE PO SCH (22:52)
[2021-06-19] MEDS: ACETAMINOPHEN 325 MG TABLET (FP) PO PRN (03:05)
[2021-06-19] MEDS: GABAPENTIN 100 MG CAPSULE PO SCH ×3 (05:56→21:07)
[2021-06-19] MEDS: ENOXAPARIN NA (PORCINE) 40 MG/0.4 ML DISP.SYRIN SQ SCH (09:25)
[2021-06-19] MEDS: TAMSULOSIN HCL 0.4 MG CAP PO SCH (09:25)
[2021-06-19] MEDS: LOSARTAN POTASSIUM 50 MG TABLET PO SCH (09:25)
[2021-06-19 09:51] LABS: BASO % 0.2 % (0-2.0); HEMATOCRIT 41.3 % (35.4-49); HEMOGLOBIN 14.1 GM/dL (11.7-16.9); LYMPH % 35.2 % (8-40); MCHC 34.1 g/dl (32.0-35.9); MEAN CELL VOLUME 88.1 fl (80-96); MEAN PLT VOLUME 9.4 fl (7.5-11.1); MONO % 11.7 % (3.8-10.2); NEUT % 51.9 % (42.8-82.8); PLATELET COUNT 284 10^3/uL (134-434); RBC 4.69 M/mm3 (4.00-5.60); RDW 14.7 % (11.9-15.9); WHITE BLOOD COUNT 6.7 K/mm3 (4.0-10.0)
[2021-06-19 10:20] LABS: ALBUMIN 3.4 g/dl (3.4-5.0)
[2021-06-19 10:21] LABS: BLOOD UREA NITROGEN 6.6 mg/dL (7-18); MAGNESIUM 1.6 mg/dL (1.8-2.4)
[2021-06-19 10:23] LABS: BILIRUBIN,TOTAL 0.8 mg/dL (0.2-1); CREATININE 0.8 mg/dL (0.55-1.3); PHOSPHOROUS 2.8 mg/dL (2.5-4.9); TOT PROT 6.6 g/dl (6.4-8.2)
[2021-06-19] MEDS: traMADol HCL 50 MG TABLET PO PRN (10:55)
[2021-06-20] MEDS: traMADol HCL 50 MG TABLET PO PRN ×2 (00:45→14:19)
[2021-06-20] MEDS: ACETAMINOPHEN 325 MG TABLET (FP) PO PRN (05:13)
[2021-06-20] MEDS: GABAPENTIN 100 MG CAPSULE PO SCH ×3 (05:13→21:40)
[2021-06-20] MEDS: TAMSULOSIN HCL 0.4 MG CAP PO SCH (07:54)
[2021-06-20] MEDS: ENOXAPARIN NA (PORCINE) 40 MG/0.4 ML DISP.SYRIN SQ SCH (09:16)
[2021-06-20] MEDS: LOSARTAN POTASSIUM 50 MG TABLET PO SCH (09:16)
[2021-06-20] MEDS: KETOROLAC TROMETHAMINE 30 MG/1 ML VIAL IVPUSH PRN (17:19)
[2021-06-21] MEDS: KETOROLAC TROMETHAMINE 30 MG/1 ML VIAL IVPUSH PRN ×3 (02:26→16:05)
[2021-06-21] MEDS: GABAPENTIN 100 MG CAPSULE PO SCH ×3 (05:49→22:10)
[2021-06-21] MEDS: ENOXAPARIN NA (PORCINE) 40 MG/0.4 ML DISP.SYRIN SQ SCH (09:39)
[2021-06-21] MEDS: LOSARTAN POTASSIUM 50 MG TABLET PO SCH (09:40)
[2021-06-21] MEDS: TAMSULOSIN HCL 0.4 MG CAP PO SCH (09:40)
[2021-06-21] MEDS: traMADol HCL 50 MG TABLET PO PRN (20:16)
[2021-06-22] MEDS: GABAPENTIN 100 MG CAPSULE PO SCH (06:40)
[2021-06-22] MEDS: TAMSULOSIN HCL 0.4 MG CAP PO SCH (08:05)
[2021-06-22] MEDS: KETOROLAC TROMETHAMINE 30 MG/1 ML VIAL IVPUSH PRN (08:57)
[2021-06-22] MEDS: LOSARTAN POTASSIUM 50 MG TABLET PO SCH (09:00)
[2021-06-22] MEDS: ENOXAPARIN NA (PORCINE) 40 MG/0.4 ML DISP.SYRIN SQ SCH (09:01)
[2021-06-22 12:07] VITALS: BP 144/81; PULSE 63; TEMP 98.2
== END 2021-06-22 13:46 | DRG 552 ==
LOC: JER 10:32 → JERBED 16:03 → J5S 19:46
PROVIDERS: ADMIT Internal Medicine; ATTEND Family Medicine
DX: M51.26 Other intervertebral disc displacement, lumbar region (principal); M48.061 Spinal stenosis, lumbar region without neurogenic claudication; F06.8 Other specified mental disorders due to known physiological condition; M48.02 Spinal stenosis, cervical region; M50.822 Other cervical disc disorders at C5-C6 level; G62.9 Polyneuropathy, unspecified; I10 Essential (primary) hypertension; E66.9 Obesity, unspecified; Z68.36 Body mass index [BMI] 36.0-36.9, adult; R91.1 Solitary pulmonary nodule; N40.0 Benign prostatic hyperplasia without lower urinary tract symptoms
CPT/HCPCS: 0241U-QW; 36415; 71046-TC-FY; 71250-TC; 72131-TC; 72141-TC; 72146-TC; 72148-TC; 73560-TC-LT-FY; 73560-TC-RT-FY; 80053; 80061; 81003; 83036; 83735; 84100; 84439; 84443; 85025; 86625; 86780; 87086; 93005; 93010; 97116-GP; 97162-GP; 99285-25

== ENCOUNTER 2021-10-06 13:48 | Observation (INO) | payer OTHER ==
[2021-10-06 14:12] VITALS: BMI 29.2
[2021-10-06] MEDS ORDERED: SODIUM PHOSPHATE/NA BIPHOS 133 ML ENEMA PR ONE (15:23)
[2021-10-06] MEDS ORDERED: METOCLOPRAMIDE HCL INJECTION 10 MG/2 ML VIAL IVPUSH ONE (18:03)
[2021-10-06] MEDS ORDERED: METOCLOPRAMIDE HCL INJECTION 10 MG/2 ML VIAL ONE (18:14)
[2021-10-06 19:29] LABS: BASO % 0.2 % (0-2.0); EOS % 0.4 % (0-4.5); HEMATOCRIT 39.2 % (35.4-49); HEMOGLOBIN 13.4 GM/dL (11.7-16.9); LYMPH % 22.3 % (8-40); MCH 30.4 pg (25.7-33.7); MCHC 34.1 g/dl (32.0-35.9); MEAN CELL VOLUME 89.1 fl (80-96); MEAN PLT VOLUME 9.6 fl (7.5-11.1); MONO % 9.2 % (3.8-10.2); NEUT % 67.9 % (42.8-82.8); PLATELET COUNT 280 10^3/uL (134-434); RDW 16.3 % (11.9-15.9); WHITE BLOOD COUNT 6.2 K/mm3 (4.0-10.0)
[2021-10-06 19:34] LABS: BLOOD UREA NITROGEN 10.5 mg/dL (7-18); CALCIUM 8.7 mg/dL (8.5-10.1); MAGNESIUM 1.5 mg/dL (1.8-2.4)
[2021-10-06 19:37] LABS: CREATININE 0.8 mg/dL (0.55-1.3)
[2021-10-06 19:39] LABS: BILIRUBIN,TOTAL 0.7 mg/dL (0.2-1); TOT PROT 6.3 g/dl (6.4-8.2)
[2021-10-06] MEDS ORDERED: MAGNESIUM SULF 50% (8.12 MEQ/2 ML-1 GM VIAL) IVPB ONE (19:40)
[2021-10-06] MEDS ORDERED: MAGNESIUM SULFATE IN WATER 2 GM/50 ML IVPB IVPB ONE (19:41)
[2021-10-06] MEDS ORDERED: MAGNESIUM CITRATE 300 ML BOTTLE PO ONE (23:27)
[2021-10-06] MEDS ORDERED: Methylnaltrexone Bromide 12 MG/0.6 ML KIT SQ ONE (23:30)
[2021-10-07 08:23] LABS: BASO % 0.2 % (0-2.0); EOS % 1.4 % (0-4.5); HEMATOCRIT 36.2 % (35.4-49); HEMOGLOBIN 12.7 GM/dL (11.7-16.9); LYMPH % 34.1 % (8-40); MCH 31.2 pg (25.7-33.7); MCHC 35.2 g/dl (32.0-35.9); MEAN CELL VOLUME 88.5 fl (80-96); MEAN PLT VOLUME 9.1 fl (7.5-11.1); MONO % 11.5 % (3.8-10.2); NEUT % 52.8 % (42.8-82.8); PLATELET COUNT 269 10^3/uL (134-434); RBC 4.08 M/mm3 (4.00-5.60); RDW 15.9 % (11.9-15.9); WHITE BLOOD COUNT 8.1 K/mm3 (4.0-10.0)
[2021-10-07 08:28] LABS: CALCIUM 8.5 mg/dL (8.5-10.1)
[2021-10-07 08:29] LABS: ALBUMIN 2.8 g/dl (3.4-5.0); BLOOD UREA NITROGEN 9.7 mg/dL (7-18); MAGNESIUM 2.1 mg/dL (1.8-2.4)
[2021-10-07 08:34] LABS: CREATININE 0.6 mg/dL (0.55-1.3); TOT PROT 5.6 g/dl (6.4-8.2)
[2021-10-07 08:36] LABS: BILIRUBIN,TOTAL 0.8 mg/dL (0.2-1)
[2021-10-07 15:00] LABS: URINE APPEARANCE CLEAR; URINE COLOR DK YELLOW; URINE GLUCOSE (UA) NEGATIVE (NEGATIVE)
[2021-10-07 15:01] LABS: URINE BILIRUBIN 1+ (NEGATIVE); URINE KETONE 1+ (NEGATIVE)
[2021-10-07 15:02] LABS: EPI CELLS 1 /uL (0-25.1); HYALINE CASTS 3 /uL (0-3.1); PH,URINE 5.5 (5.0-8.0); URINE LEUK ESTERASE NEGATIVE (NEGATIVE); URINE NITRITE NEGATIVE (NEGATIVE); URINE PROTEIN 1+ (NEGATIVE); URINE RBC 13 /uL (0-23.9); URINE UROBILINOGEN 2 mg/dL (0.2-1.0); URINE WBC 212 /uL (0-25.8)
[2021-10-07 15:03] LABS: URINE BACTERIA 863 /uL (0-1359)
[2021-10-07] MEDS ORDERED: POTASSIUM CHLORIDE TABS 20 MEQ TABLET.ER (FP) PO ONE (15:13)
[2021-10-07] MEDS ORDERED: D5-1/2NS+20 MEQ KCL - 20 MEQ/1,000 ML INFUS.BAG IV SCH (15:15)
[2021-10-08] MEDS ORDERED: GABAPENTIN 300 MG CAPSULE PO ONE (04:40)
[2021-10-08 10:31] LABS: BLOOD UREA NITROGEN 6.8 mg/dL (7-18); CALCIUM 8.1 mg/dL (8.5-10.1)
[2021-10-08 10:35] LABS: CREATININE 0.7 mg/dL (0.55-1.3)
[2021-10-08 17:57] VITALS: BP 156/98; PULSE 69; RESP 17; TEMP 98.7
== END 2021-10-08 17:40 | disposition home health service (06) ==
LOC: JER 13:48 → JERBED 10-07 00:55 → J6S 10-07 08:51
PROVIDERS: ADMIT Internal Medicine; ATTEND Family Medicine
PROC: 3E033GC Introduction of Other Therapeutic Substance into Peripheral Vein, Percutaneous Approach (ICD-10-PCS; principal; 2021-10-07)
PROC: 3E023GC Introduction of Other Therapeutic Substance into Muscle, Percutaneous Approach (ICD-10-PCS; 2021-10-07)
DX: Z87.891 Personal history of nicotine dependence (principal); I10 Essential (primary) hypertension; E78.5 Hyperlipidemia, unspecified; K56.41 Fecal impaction; N40.0 Benign prostatic hyperplasia without lower urinary tract symptoms; N20.0 Calculus of kidney; Z87.440 Personal history of urinary (tract) infections; N40.1 Benign prostatic hyperplasia with lower urinary tract symptoms; G62.9 Polyneuropathy, unspecified; G89.29 Other chronic pain; M54.9 Dorsalgia, unspecified; E87.0 Hyperosmolality and hypernatremia; E87.5 Hyperkalemia; Z20.822 Contact with and (suspected) exposure to COVID-19
CPT/HCPCS: 36415; 74177-TC; 80048; 80053; 81003; 83735; 84100; 85025; 87086; 87186; 93005; 93010; 96365; 96372; 99285-25; C9803-CS; G0378; Q9967; U0003; U0005

== ENCOUNTER 2021-11-26 01:37 | Emergency (ER) | payer OTHER ==
[2021-11-26 01:53] VITALS: RESP 18; BMI 26.6
[2021-11-26] MEDS ORDERED: LACTATED RINGERS SOLUTION 1000 ML INFUS.BAG IV ONE (01:59)
[2021-11-26] MEDS ORDERED: SODIUM PHOSPHATE/NA BIPHOS 133 ML ENEMA PR ONE (01:59)
[2021-11-26] MEDS ORDERED: MAGNESIUM HYDROX 2400MG/30ML ORAL SUSPENSION 30 ML CUP PO ONE (01:59)
[2021-11-26] MEDS ORDERED: MAG HYDROX/AL HYDROX/SIMETH 30 ML UNIT-DOSE CUP ONE (02:10)
[2021-11-26 02:42] LABS: BASO % 0.6 % (0-2.0); EOS % 0.6 % (0-4.5); HEMATOCRIT 48.3 % (35.4-49); HEMOGLOBIN 16.2 GM/dL (11.7-16.9); LYMPH % 25.7 % (8-40); MCH 30.7 pg (25.7-33.7); MCHC 33.6 g/dl (32.0-35.9); MEAN CELL VOLUME 91.4 fl (80-96); MEAN PLT VOLUME 10.1 fl (7.5-11.1); MONO % 11.4 % (3.8-10.2); NEUT % 61.7 % (42.8-82.8); RBC 5.29 M/mm3 (4.00-5.60); RDW 16.3 % (11.9-15.9)
[2021-11-26 02:56] LABS: WHITE BLOOD COUNT 9.2 K/mm3 (4.0-10.0)
[2021-11-26 02:58] LABS: ALBUMIN 3.8 g/dl (3.4-5.0); BLOOD UREA NITROGEN 9.7 mg/dL (7-18); CALCIUM 9.5 mg/dL (8.5-10.1)
[2021-11-26 03:01] LABS: CREATININE 0.8 mg/dL (0.55-1.3)
[2021-11-26 03:03] LABS: BILIRUBIN,TOTAL 1.2 mg/dL (0.2-1); TOT PROT 7.5 g/dl (6.4-8.2)
[2021-11-26 03:22] LABS: PLATELET COUNT 173 10^3/uL (134-434)
[2021-11-26] MEDS ORDERED: LIDOCAINE HCL 2% JELLY (5 ML/TUBE) ONE (06:38)
[2021-11-26] MEDS ORDERED: LIDOCAINE HCL 2% JELLY 11 ML TP ONE (06:39)
[2021-11-26 08:57] VITALS: BP 183/97; PULSE 66; TEMP 98.3
== END 2021-11-26 09:00 | disposition home or self-care (01) ==
LOC: JER 01:37
DX: R10.9 Unspecified abdominal pain (principal)
CPT/HCPCS: 36415; 71045-TC-FY; 80053; 84484; 85025; 93005; 93010; 99285-25; C9803-CS; U0003; U0005

== ENCOUNTER 2022-02-13 18:55 | Observation (INO) | payer OTHER ==
[2022-02-13] MEDS ORDERED: SODIUM PHOSPHATE/NA BIPHOS 133 ML ENEMA PR ONE (21:43)
[2022-02-13] MEDS ORDERED: MAGNESIUM CITRATE 300 ML BOTTLE PO ONE (21:44)
[2022-02-13] MEDS ORDERED: MAGNESIUM HYDROX 2400MG/30ML ORAL SUSPENSION 30 ML CUP ONE (21:54)
[2022-02-13] MEDS ORDERED: LIDOCAINE HCL 2% JELLY 10 ML CARTRIDGE PR ONE (23:49)
[2022-02-13] MEDS ORDERED: PEG 3350/NA SULF BICARB CL/KCL 4000 ML SOLN.RECON PO ONE (23:55)
[2022-02-14 04:59] LABS: EPI CELLS 11 /uL (0-25.1); HYALINE CASTS 3 /uL (0-3.1); PH,URINE 5.5 (5.0-8.0); URINE APPEARANCE CLEAR; URINE BACTERIA 9 /uL (0-1359); URINE BILIRUBIN 2+ (NEGATIVE); URINE COLOR DK YELLOW; URINE GLUCOSE (UA) NEGATIVE (NEGATIVE); URINE KETONE TRACE (NEGATIVE); URINE LEUK ESTERASE 1+ (NEGATIVE); URINE NITRITE NEGATIVE (NEGATIVE); URINE PROTEIN TRACE (NEGATIVE); URINE WBC 127 /uL (0-25.8)
[2022-02-14 05:04] LABS: URINE RBC 333.4 /uL (0-23.9)
[2022-02-14 05:10] LABS: BASO % 0.3 % (0-2.0); EOS % 0.9 % (0-4.5); HEMATOCRIT 47.4 % (35.4-49); HEMOGLOBIN 15.8 GM/dL (11.7-16.9); MCH 30.4 pg (25.7-33.7); MCHC 33.4 g/dl (32.0-35.9); MEAN PLT VOLUME 9.5 fl (7.5-11.1); NEUT % 59.8 % (42.8-82.8); PLATELET COUNT 284 10^3/uL (134-434); RDW 15.9 % (11.9-15.9); WHITE BLOOD COUNT 8.4 K/mm3 (4.0-10.0)
[2022-02-14 05:18] LABS: INR 1.09 (0.83-1.09); PROTHROMBIN TIME (PATIENT) 12.6 SEC (9.7-13.0)
[2022-02-14 05:21] LABS: ACTIVATED PTT 26.7 SECONDS (25.2-36.5)
[2022-02-14 05:21] LABS: URINE CRYSTALS FEW /hpf; YEAST MODERATE (NEGATIVE)
[2022-02-14 05:28] LABS: CALCIUM 10.1 mg/dL (8.5-10.1)
[2022-02-14 05:29] LABS: ALBUMIN 3.6 g/dl (3.4-5.0); BLOOD UREA NITROGEN 9.3 mg/dL (7-18)
[2022-02-14 05:32] LABS: CREATININE 0.8 mg/dL (0.55-1.3)
[2022-02-14 05:34] LABS: TOT PROT 6.8 g/dl (6.4-8.2)
[2022-02-14] MEDS ORDERED: LACTULOSE 20 GM/30 ML UDC (FOR ORAL USE ONLY) PO PRN (08:29)
[2022-02-14] MEDS: DEXTROSE 5%-NORMAL SALINE 1,000 ML IV SCH (09:15)
[2022-02-14] MEDS ORDERED: TAMSULOSIN HCL 0.4 MG CAP ONE (09:23)
[2022-02-14] MEDS ORDERED: LOSARTAN POTASSIUM 50 MG TABLET ONE (09:23)
[2022-02-14] MEDS ORDERED: GABAPENTIN 300 MG CAPSULE ONE (09:23)
[2022-02-14] MEDS ORDERED: HEPARIN NA (PORCINE) 5,000 UNITS/ML 1ML VIAL ONE (09:24)
[2022-02-14] MEDS: LOSARTAN POTASSIUM 50 MG TABLET PO SCH (09:44)
[2022-02-14] MEDS: HEPARIN NA (PORCINE) 5,000 UNITS/ML 1ML VIAL SQ SCH ×2 (09:44→22:27)
[2022-02-14] MEDS: GABAPENTIN 300 MG CAPSULE PO SCH ×2 (09:44→22:26)
[2022-02-14] MEDS ORDERED: LACTULOSE 20 GM/30 ML UDC (FOR ORAL USE ONLY) ONE (12:19)
[2022-02-14] MEDS ORDERED: amLODIPine BESYLATE 5 MG TABLET (FP) PO ONE (13:54)
[2022-02-14] MEDS ORDERED: amLODIPine BESYLATE 5 MG TABLET (FP) ONE (13:57)
[2022-02-14] MEDS ORDERED: LIDOCAINE HCL 2% JELLY 6 ML TP ONE (15:06)
[2022-02-14] MEDS ORDERED: SODIUM PHOSPHATE/NA BIPHOS 133 ML ENEMA RC ONE (15:58)
[2022-02-14] MEDS ORDERED: POLYETHYLENE GLYCOL (HEALTHYLAX) 3350 17 GM PACKET ONE (16:39)
[2022-02-14] MEDS: POLYETHYLENE GLYCOL (HEALTHYLAX) 3350 17 GM PACKET PO SCH ×2 (16:43→22:27)
[2022-02-14 19:33] LABS: EPI CELLS 4 /uL (0-25.1); HYALINE CASTS 0 /uL (0-3.1); URINE APPEARANCE CLOUDY; URINE BACTERIA 1 /uL (0-1359); URINE BILIRUBIN 1+ (NEGATIVE); URINE COLOR DK YELLOW; URINE GLUCOSE (UA) NEGATIVE (NEGATIVE); URINE KETONE 1+ (NEGATIVE); URINE LEUK ESTERASE TRACE (NEGATIVE); URINE NITRITE NEGATIVE (NEGATIVE); URINE PROTEIN 1+ (NEGATIVE); URINE RBC 7304 /uL (0-23.9); URINE UROBILINOGEN 4.0 E.U/dl mg/dL (0.2-1.0); URINE WBC 49 /uL (0-25.8)
[2022-02-14] MEDS ORDERED: KETOROLAC TROMETHAMINE 15 MG/ML VIAL ONE (20:29)
[2022-02-14] MEDS: KETOROLAC TROMETHAMINE 15 MG/ML VIAL IVPUSH PRN (20:56)
[2022-02-15] MEDS: POLYETHYLENE GLYCOL (HEALTHYLAX) 3350 17 GM PACKET PO SCH (05:27)
[2022-02-15] MEDS ORDERED: SODIUM PHOSPHATE/NA BIPHOS 133 ML ENEMA RC ONE (10:00)
[2022-02-15] MEDS ORDERED: FLU VACC QS2022-23(6MOS UP)/PF 60 MCG/0.5 ML SYRINGE IM ONE (10:00)
[2022-02-15] MEDS: GABAPENTIN 300 MG CAPSULE PO SCH ×2 (11:21→21:14)
[2022-02-15] MEDS: HEPARIN NA (PORCINE) 5,000 UNITS/ML 1ML VIAL SQ SCH ×2 (11:21→21:13)
[2022-02-15] MEDS: TAMSULOSIN HCL 0.4 MG CAP PO SCH (11:22)
[2022-02-15] MEDS: LOSARTAN POTASSIUM 50 MG TABLET PO SCH (11:28)
[2022-02-15] MEDS: LIDOCAINE HCL 5% TOP OINTMENT 50 GM TUBE TP SCH (11:31)
[2022-02-15] MEDS: DEXTROSE 5%-NORMAL SALINE 1,000 ML IV SCH (11:41)
[2022-02-15] MEDS: LACTULOSE 20 GM/30 ML UDC (FOR ORAL USE ONLY) PO SCH ×2 (13:38→21:13)
[2022-02-15] MEDS: KETOROLAC TROMETHAMINE 15 MG/ML VIAL IVPUSH PRN ×2 (13:51→21:39)
[2022-02-15] MEDS ORDERED: TRIMETHOBENZAMIDE HCL 200MG/2ML INJ IM ONE (22:00)
[2022-02-15] MEDS ORDERED: ACETAMINOPHEN 1000 MG/100 ML BAG IVPB ONE (23:41)
[2022-02-16] MEDS: DEXTROSE 5%-NORMAL SALINE 1,000 ML IV SCH (05:53)
[2022-02-16] MEDS: LACTULOSE 20 GM/30 ML UDC (FOR ORAL USE ONLY) PO SCH ×3 (07:44→21:19)
[2022-02-16 09:07] LABS: HEMATOCRIT 41.4 % (35.4-49); HEMOGLOBIN 13.9 GM/dL (11.7-16.9); MCH 30.4 pg (25.7-33.7); MCHC 33.5 g/dl (32.0-35.9); MEAN CELL VOLUME 90.9 fl (80-96); MEAN PLT VOLUME 9.6 fl (7.5-11.1); PLATELET COUNT 251 10^3/uL (134-434); RBC 4.56 M/mm3 (4.00-5.60); RDW 15.6 % (11.9-15.9); WHITE BLOOD COUNT 6.5 K/mm3 (4.0-10.0)
[2022-02-16 09:27] LABS: CALCIUM 8.6 mg/dL (8.5-10.1)
[2022-02-16 09:28] LABS: BLOOD UREA NITROGEN 7.2 mg/dL (7-18)
[2022-02-16 09:30] LABS: CREATININE 0.8 mg/dL (0.55-1.3); MAGNESIUM 1.8 mg/dL (1.8-2.4)
[2022-02-16 09:33] LABS: BILIRUBIN,TOTAL 1.4 mg/dL (0.2-1); TOT PROT 5.6 g/dl (6.4-8.2)
[2022-02-16] MEDS: GABAPENTIN 300 MG CAPSULE PO SCH ×2 (10:36→21:19)
[2022-02-16] MEDS: TAMSULOSIN HCL 0.4 MG CAP PO SCH (10:37)
[2022-02-16] MEDS: LOSARTAN POTASSIUM 50 MG TABLET PO SCH (10:37)
[2022-02-16] MEDS: LIDOCAINE HCL 5% TOP OINTMENT 50 GM TUBE TP SCH (10:37)
[2022-02-16] MEDS: HEPARIN NA (PORCINE) 5,000 UNITS/ML 1ML VIAL SQ SCH ×2 (10:37→21:18)
[2022-02-16 14:51] VITALS: BMI 23.3
[2022-02-17] MEDS: LACTULOSE 20 GM/30 ML UDC (FOR ORAL USE ONLY) PO SCH ×4 (07:04→21:58)
[2022-02-17] MEDS ORDERED: SODIUM PHOSPHATE/NA BIPHOS 133 ML ENEMA RC ONE (10:19)
[2022-02-17] MEDS: DEXTROSE 5%-NORMAL SALINE 1,000 ML IV SCH ×3 (11:13→18:59)
[2022-02-17] MEDS: LOSARTAN POTASSIUM 50 MG TABLET PO SCH (11:14)
[2022-02-17] MEDS: TAMSULOSIN HCL 0.4 MG CAP PO SCH (11:14)
[2022-02-17] MEDS: GABAPENTIN 300 MG CAPSULE PO SCH ×2 (11:14→21:09)
[2022-02-17] MEDS: MULTIVITAMINS (DAILY MVI) TABLET (FP) PO SCH (11:15)
[2022-02-17] MEDS: HEPARIN NA (PORCINE) 5,000 UNITS/ML 1ML VIAL SQ SCH ×2 (11:15→21:09)
[2022-02-17] MEDS: PANTOPRAZOLE 40 MG TABLET PO SCH (11:28)
[2022-02-17] MEDS: LIDOCAINE HCL 5% TOP OINTMENT 50 GM TUBE TP SCH (11:29)
[2022-02-17 19:32] LABS: EPI CELLS 5 /uL (0-25.1); HYALINE CASTS 2 /uL (0-3.1); PH,URINE 7.5 (5.0-8.0); URINE APPEARANCE CLEAR; URINE BACTERIA 2 /uL (0-1359); URINE BILIRUBIN NEGATIVE (NEGATIVE); URINE COLOR YELLOW; URINE GLUCOSE (UA) NEGATIVE (NEGATIVE); URINE KETONE NEGATIVE (NEGATIVE); URINE LEUK ESTERASE NEGATIVE (NEGATIVE); URINE NITRITE NEGATIVE (NEGATIVE); URINE PROTEIN NEGATIVE (NEGATIVE); URINE RBC 32 /uL (0-23.9); URINE UROBILINOGEN >=8.0 E.U./dl mg/dL (0.2-1.0); URINE WBC 23 /uL (0-25.8)
[2022-02-18] MEDS: LACTULOSE 20 GM/30 ML UDC (FOR ORAL USE ONLY) PO SCH ×3 (05:15→22:36)
[2022-02-18] MEDS: PANTOPRAZOLE 40 MG TABLET PO SCH (09:29)
[2022-02-18] MEDS: TAMSULOSIN HCL 0.4 MG CAP PO SCH (09:29)
[2022-02-18] MEDS: GABAPENTIN 300 MG CAPSULE PO SCH ×2 (09:29→22:37)
[2022-02-18] MEDS: LOSARTAN POTASSIUM 50 MG TABLET PO SCH (09:29)
[2022-02-18] MEDS: MULTIVITAMINS (DAILY MVI) TABLET (FP) PO SCH (09:29)
[2022-02-18] MEDS: HEPARIN NA (PORCINE) 5,000 UNITS/ML 1ML VIAL SQ SCH ×2 (09:29→22:36)
[2022-02-18] MEDS: DEXTROSE 5%-NORMAL SALINE 1,000 ML IV SCH (09:30)
[2022-02-18] MEDS: LIDOCAINE HCL 5% TOP OINTMENT 50 GM TUBE TP SCH (09:30)
[2022-02-19] MEDS: LACTULOSE 20 GM/30 ML UDC (FOR ORAL USE ONLY) PO SCH ×3 (05:48→22:30)
[2022-02-19] MEDS: GABAPENTIN 300 MG CAPSULE PO SCH ×2 (09:17→22:30)
[2022-02-19] MEDS: MULTIVITAMINS (DAILY MVI) TABLET (FP) PO SCH (09:17)
[2022-02-19] MEDS: LOSARTAN POTASSIUM 50 MG TABLET PO SCH (09:17)
[2022-02-19] MEDS: PANTOPRAZOLE 40 MG TABLET PO SCH (09:17)
[2022-02-19] MEDS: HEPARIN NA (PORCINE) 5,000 UNITS/ML 1ML VIAL SQ SCH ×2 (09:17→22:30)
[2022-02-19] MEDS: TAMSULOSIN HCL 0.4 MG CAP PO SCH (09:23)
[2022-02-19] MEDS: LIDOCAINE HCL 5% TOP OINTMENT 50 GM TUBE TP SCH (09:24)
[2022-02-20] MEDS: LACTULOSE 20 GM/30 ML UDC (FOR ORAL USE ONLY) PO SCH ×3 (05:47→21:44)
[2022-02-20] MEDS: PANTOPRAZOLE 40 MG TABLET PO SCH (09:39)
[2022-02-20] MEDS: TAMSULOSIN HCL 0.4 MG CAP PO SCH ×2 (09:39→09:46)
[2022-02-20] MEDS: LOSARTAN POTASSIUM 50 MG TABLET PO SCH (09:39)
[2022-02-20] MEDS: GABAPENTIN 300 MG CAPSULE PO SCH ×2 (09:39→21:44)
[2022-02-20] MEDS: HEPARIN NA (PORCINE) 5,000 UNITS/ML 1ML VIAL SQ SCH ×2 (09:40→21:44)
[2022-02-20] MEDS: MULTIVITAMINS (DAILY MVI) TABLET (FP) PO SCH (09:40)
[2022-02-20] MEDS: LIDOCAINE HCL 5% TOP OINTMENT 50 GM TUBE TP SCH (09:42)
[2022-02-21] MEDS: LACTULOSE 20 GM/30 ML UDC (FOR ORAL USE ONLY) PO SCH ×2 (05:29→13:47)
[2022-02-21] MEDS: PANTOPRAZOLE 40 MG TABLET PO SCH (10:09)
[2022-02-21] MEDS: LOSARTAN POTASSIUM 50 MG TABLET PO SCH (10:09)
[2022-02-21] MEDS: LIDOCAINE HCL 5% TOP OINTMENT 50 GM TUBE TP SCH (10:09)
[2022-02-21] MEDS: GABAPENTIN 300 MG CAPSULE PO SCH ×2 (10:09→21:46)
[2022-02-21] MEDS: HEPARIN NA (PORCINE) 5,000 UNITS/ML 1ML VIAL SQ SCH ×2 (10:09→21:46)
[2022-02-21] MEDS: TAMSULOSIN HCL 0.4 MG CAP PO SCH (10:09)
[2022-02-21] MEDS: MULTIVITAMINS (DAILY MVI) TABLET (FP) PO SCH (10:09)
[2022-02-21] MEDS: ACETAMINOPHEN 325 MG TABLET (FP) PO PRN (15:38)
[2022-02-21] MEDS: KETOROLAC TROMETHAMINE 15 MG/ML VIAL IVPUSH PRN (17:16)
[2022-02-21] MEDS: POLYETHYLENE GLYCOL (HEALTHYLAX) 3350 17 GM PACKET PO SCH (21:46)
[2022-02-22] MEDS: KETOROLAC TROMETHAMINE 15 MG/ML VIAL IVPUSH PRN ×4 (01:28→21:42)
[2022-02-22] MEDS: TAMSULOSIN HCL 0.4 MG CAP PO SCH (08:28)
[2022-02-22] MEDS: LIDOCAINE HCL 5% TOP OINTMENT 50 GM TUBE TP SCH (10:01)
[2022-02-22] MEDS: LOSARTAN POTASSIUM 50 MG TABLET PO SCH (10:02)
[2022-02-22] MEDS: POLYETHYLENE GLYCOL (HEALTHYLAX) 3350 17 GM PACKET PO SCH ×3 (10:02→23:03)
[2022-02-22] MEDS: MULTIVITAMINS (DAILY MVI) TABLET (FP) PO SCH (10:03)
[2022-02-22] MEDS: HEPARIN NA (PORCINE) 5,000 UNITS/ML 1ML VIAL SQ SCH ×2 (10:03→23:03)
[2022-02-22] MEDS: GABAPENTIN 300 MG CAPSULE PO SCH ×2 (10:03→23:03)
[2022-02-22] MEDS: PANTOPRAZOLE 40 MG TABLET PO SCH (10:03)
[2022-02-22 11:54] VITALS: RESP 18
[2022-02-23] MEDS: KETOROLAC TROMETHAMINE 15 MG/ML VIAL IVPUSH PRN ×2 (05:39→16:15)
[2022-02-23] MEDS: TAMSULOSIN HCL 0.4 MG CAP PO SCH (08:39)
[2022-02-23] MEDS: MULTIVITAMINS (DAILY MVI) TABLET (FP) PO SCH (09:45)
[2022-02-23] MEDS: ACETAMINOPHEN 325 MG TABLET (FP) PO PRN (09:45)
[2022-02-23] MEDS: GABAPENTIN 300 MG CAPSULE PO SCH (09:47)
[2022-02-23] MEDS: SIMETHICONE 80 MG TAB.CHEW (FP) PO SCH ×3 (09:47→17:07)
[2022-02-23] MEDS: PANTOPRAZOLE 40 MG TABLET PO SCH (09:47)
[2022-02-23] MEDS: LOSARTAN POTASSIUM 50 MG TABLET PO SCH (09:47)
[2022-02-23] MEDS: HEPARIN NA (PORCINE) 5,000 UNITS/ML 1ML VIAL SQ SCH (09:51)
[2022-02-23 10:18] LABS: ALBUMIN 2.8 g/dl (3.4-5.0); CALCIUM 8.8 mg/dL (8.5-10.1)
[2022-02-23 10:19] LABS: BLOOD UREA NITROGEN 14.9 mg/dL (7-18)
[2022-02-23 10:21] LABS: CREATININE 0.6 mg/dL (0.55-1.3)
[2022-02-23 10:23] LABS: TOT PROT 5.6 g/dl (6.4-8.2)
[2022-02-23] MEDS: POLYETHYLENE GLYCOL (HEALTHYLAX) 3350 17 GM PACKET PO SCH ×3 (10:26→17:07)
[2022-02-23] MEDS: LIDOCAINE HCL 5% TOP OINTMENT 50 GM TUBE TP SCH (10:27)
[2022-02-23 10:36] LABS: BILIRUBIN,TOTAL 0.6 mg/dL (0.2-1)
[2022-02-23 13:34] VITALS: BP 163/108; PULSE 73; TEMP 98.8
== END 2022-02-23 16:35 ==
LOC: JER 18:55 → JERBED 02-14 08:30 → J7W 02-14 21:28
PROVIDERS: ADMIT Family Medicine; ATTEND Family Medicine
PROC: 3E033GC Introduction of Other Therapeutic Substance into Peripheral Vein, Percutaneous Approach (ICD-10-PCS; principal; 2022-02-14)
PROC: 3E033NZ Introduction of Analgesics, Hypnotics, Sedatives into Peripheral Vein, Percutaneous Approach (ICD-10-PCS; 2022-02-14)
PROC: 3E0234Z Introduction of Serum, Toxoid and Vaccine into Muscle, Percutaneous Approach (ICD-10-PCS; 2022-02-14)
PROC: 3E0333Z Introduction of Anti-inflammatory into Peripheral Vein, Percutaneous Approach (ICD-10-PCS; 2022-02-14)
PROC: 3E023GC Introduction of Other Therapeutic Substance into Muscle, Percutaneous Approach (ICD-10-PCS; 2022-02-14)
DX: R10.84 Generalized abdominal pain (principal); K59.00 Constipation, unspecified; I10 Essential (primary) hypertension; E78.00 Pure hypercholesterolemia, unspecified; N20.0 Calculus of kidney; N40.0 Benign prostatic hyperplasia without lower urinary tract symptoms; E80.6 Other disorders of bilirubin metabolism; Z87.891 Personal history of nicotine dependence; Z91.011 Allergy to milk products
CPT/HCPCS: 0241U-QW; 36415; 70450-TC; 74018-TC-FY; 74019-TC-FY; 74177-TC; 80053; 81003; 82570; 83735; 84156; 85025; 85027; 85610; 85730; 87077; 87086; 93005; 93010; 96365; 96372; 96375; 96376; 97110-GP; 97116-GP; 97161-GP; 99285-25; C9803-CS; G0378; J1644; Q2036; Q9967; U0003; U0005

== ENCOUNTER 2022-02-26 11:26 | Observation (INO) | payer OTHER ==
[2022-02-26 11:52] VITALS: RESP 18
[2022-02-26] MEDS ORDERED: ACETAMINOPHEN 1000 MG/100 ML BAG IVPB ONE (12:03)
[2022-02-26] MEDS ORDERED: ACETAMINOPHEN INJECTION 100 ML IVPB ONE ×2 (12:10→18:38)
[2022-02-26 12:52] LABS: HEMATOCRIT 45.4 % (35.4-49); HEMOGLOBIN 15.1 GM/dL (11.7-16.9); MCH 30.7 pg (25.7-33.7); MCHC 33.3 g/dl (32.0-35.9); MEAN PLT VOLUME 9.3 fl (7.5-11.1); PLATELET COUNT 221 10^3/uL (134-434); RBC 4.94 M/mm3 (4.00-5.60); RDW 15.7 % (11.9-15.9); WHITE BLOOD COUNT 5.7 K/mm3 (4.0-10.0)
[2022-02-26 13:21] LABS: BLOOD UREA NITROGEN 17.6 mg/dL (7-18)
[2022-02-26 13:24] LABS: CREATININE 0.7 mg/dL (0.55-1.3)
[2022-02-26 15:15] LABS: URINE COLOR YELLOW
[2022-02-26 15:16] LABS: URINE APPEARANCE CLOUDY
[2022-02-26 15:18] LABS: URINE BILIRUBIN NEGATIVE (NEGATIVE); URINE GLUCOSE (UA) NEGATIVE (NEGATIVE)
[2022-02-26 15:19] LABS: URINE KETONE TRACE (NEGATIVE)
[2022-02-26 15:20] LABS: URINE LEUK ESTERASE NEGATIVE (NEGATIVE); URINE NITRITE NEGATIVE (NEGATIVE)
[2022-02-26 15:23] LABS: URINE PROTEIN 2+ (NEGATIVE)
[2022-02-26 15:30] LABS: URINE CRYSTALS CALCIUM OXALATE /hpf
[2022-02-26 15:31] LABS: EPI CELLS 2.5 /uL (0-25.1); HYALINE CASTS 5.24 /uL (0-3.1); URINE BACTERIA 3272.7 /uL (0-1359); URINE RBC 3139.6 /uL (0-23.9); URINE WBC 828.6 /uL (0-25.8)
[2022-02-26] MEDS: DEXTROSE 5%-NORMAL SALINE 1,000 ML IV SCH (17:35)
[2022-02-26] MEDS: ACETAMINOPHEN 1000 MG/100 ML BAG IVPB PRN (18:41)
[2022-02-26] MEDS ORDERED: MINERAL OIL ENEMA 133 ML ENEMA RC ONE (20:48)
[2022-02-26] MEDS ORDERED: TAMSULOSIN HCL 0.4 MG CAP ONE (22:31)
[2022-02-26] MEDS ORDERED: GABAPENTIN 300 MG CAPSULE ONE (22:31)
[2022-02-26] MEDS: GABAPENTIN 300 MG CAPSULE PO SCH (22:35)
[2022-02-26] MEDS: TAMSULOSIN HCL 0.4 MG CAP PO SCH (22:35)
[2022-02-27] MEDS ORDERED: KETOROLAC TROMETHAMINE 15 MG/ML VIAL ONE (00:14)
[2022-02-27] MEDS: KETOROLAC TROMETHAMINE 15 MG/ML VIAL IVPUSH PRN ×3 (00:17→17:21)
[2022-02-27] MEDS: GABAPENTIN 300 MG CAPSULE PO SCH ×3 (05:37→21:50)
[2022-02-27] MEDS: ACETAMINOPHEN 1000 MG/100 ML BAG IVPB PRN ×2 (07:41→21:49)
[2022-02-27] MEDS: LOSARTAN POTASSIUM 50 MG TABLET PO SCH (09:22)
[2022-02-27] MEDS: HEPARIN NA (PORCINE) 5,000 UNITS/ML 1ML VIAL SQ SCH ×2 (09:22→21:50)
[2022-02-27] MEDS: PANTOPRAZOLE SODIUM 40 MG VIAL IVPUSH SCH (09:22)
[2022-02-27 10:40] LABS: BASO % 0.4 % (0-2.0); EOS % 4.5 % (0-4.5); HEMATOCRIT 39.7 % (35.4-49); HEMOGLOBIN 13.2 GM/dL (11.7-16.9); INR 1.14 (0.83-1.09); LYMPH % 40.5 % (8-40); MCH 30.5 pg (25.7-33.7); MCHC 33.3 g/dl (32.0-35.9); MEAN CELL VOLUME 91.5 fl (80-96); MONO % 12.8 % (3.8-10.2); NEUT % 41.8 % (42.8-82.8); PLATELET COUNT 209 10^3/uL (134-434); PROTHROMBIN TIME (PATIENT) 13.1 SEC (9.7-13.0); RBC 4.33 M/mm3 (4.00-5.60); RDW 15.8 % (11.9-15.9); WHITE BLOOD COUNT 5.5 K/mm3 (4.0-10.0)
[2022-02-27 10:42] LABS: ACTIVATED PTT 34.4 SECONDS (25.2-36.5)
[2022-02-27 10:57] LABS: CALCIUM 8.2 mg/dL (8.5-10.1)
[2022-02-27 10:58] LABS: CREATININE 0.7 mg/dL (0.55-1.3)
[2022-02-27 10:59] LABS: PHOSPHOROUS 3.4 mg/dL (2.5-4.9)
[2022-02-27] MEDS ORDERED: BISACODYL 10 MG SUPP.RECT PR PRN (16:16)
[2022-02-27] MEDS: DEXTROSE 5%-NORMAL SALINE 1,000 ML IV SCH (17:22)
[2022-02-27] MEDS: POLYETHYLENE GLYCOL (HEALTHYLAX) 3350 17 GM PACKET PO SCH (17:22)
[2022-02-27 21:06] VITALS: BMI 23.1
[2022-02-27] MEDS: TAMSULOSIN HCL 0.4 MG CAP PO SCH (21:50)
[2022-02-28] MEDS: KETOROLAC TROMETHAMINE 15 MG/ML VIAL IVPUSH PRN ×2 (05:53→12:41)
[2022-02-28] MEDS: GABAPENTIN 300 MG CAPSULE PO SCH ×2 (05:53→13:25)
[2022-02-28] MEDS: ACETAMINOPHEN 1000 MG/100 ML BAG IVPB PRN (09:41)
[2022-02-28] MEDS: LOSARTAN POTASSIUM 50 MG TABLET PO SCH (11:15)
[2022-02-28] MEDS: HEPARIN NA (PORCINE) 5,000 UNITS/ML 1ML VIAL SQ SCH (11:16)
[2022-02-28] MEDS: POLYETHYLENE GLYCOL (HEALTHYLAX) 3350 17 GM PACKET PO SCH (11:16)
[2022-02-28] MEDS: PANTOPRAZOLE SODIUM 40 MG VIAL IVPUSH SCH (11:16)
[2022-02-28] MEDS ORDERED: SODIUM PHOSPHATE/NA BIPHOS 133 ML ENEMA RC ONE ×2 (11:45→16:00)
[2022-02-28] MEDS ORDERED: LIPASE/PROTEASE/AMYLASE 36,000 UNIT CAPSULE PO SCH (12:00)
[2022-02-28] MEDS ORDERED: POLYETHYLENE GLYCOL (HEALTHYLAX) 3350 17 GM PACKET PO SCH (14:00)
[2022-02-28] MEDS ORDERED: RIFAXIMIN 550 MG TABLET PO SCH (14:00)
[2022-02-28 14:52] VITALS: BP 153/99; PULSE 60; TEMP 98.3
[2022-02-28] MEDS ORDERED: METOCLOPRAMIDE HCL 10 MG TABLET (FP) PO SCH (16:30)
[2022-03-01] MEDS ORDERED: SODIUM PHOSPHATE/NA BIPHOS 133 ML ENEMA RC ONE (10:00)
[2022-03-02] MEDS ORDERED: POLYETHYLENE GLYCOL 3350 255 GM BTL PO ONE (10:00)
[2022-03-03] MEDS ORDERED: POLYETHYLENE GLYCOL 3350 255 GM BTL PO ONE (14:00)
== END 2022-02-28 17:00 ==
LOC: JER 11:26 → INTOOBSV 16:39 → J7W 16:39 → UNDOADMOB 16:39 → J7W 02-28 09:59
PROVIDERS: ADMIT Family Medicine; ATTEND Family Medicine
PROC: 3E033NZ Introduction of Analgesics, Hypnotics, Sedatives into Peripheral Vein, Percutaneous Approach (ICD-10-PCS; principal; 2022-02-28)
PROC: 3E033GC Introduction of Other Therapeutic Substance into Peripheral Vein, Percutaneous Approach (ICD-10-PCS; 2022-02-28)
PROC: 3E023GC Introduction of Other Therapeutic Substance into Muscle, Percutaneous Approach (ICD-10-PCS; 2022-02-28)
PROC: 3E0333Z Introduction of Anti-inflammatory into Peripheral Vein, Percutaneous Approach (ICD-10-PCS; 2022-02-28)
PROC: 3E03329 Introduction of Other Anti-infective into Peripheral Vein, Percutaneous Approach (ICD-10-PCS; 2022-02-28)
DX: T83.9XXA Unspecified complication of genitourinary prosthetic device, implant and graft, initial encounter (principal); R10.84 Generalized abdominal pain; N31.9 Neuromuscular dysfunction of bladder, unspecified; I10 Essential (primary) hypertension; E78.5 Hyperlipidemia, unspecified; G62.9 Polyneuropathy, unspecified; N31.2 Flaccid neuropathic bladder, not elsewhere classified; K59.00 Constipation, unspecified; R30.0 Dysuria; K56.609 Unspecified intestinal obstruction, unspecified as to partial versus complete obstruction; N20.0 Calculus of kidney; N40.0 Benign prostatic hyperplasia without lower urinary tract symptoms; Y84.6 Urinary catheterization as the cause of abnormal reaction of the patient, or of later complication, without mention of misadventure at the time of the procedure; K56.7 Ileus, unspecified; Z91.011 Allergy to milk products
CPT/HCPCS: 0241U-QW; 36415; 74177-TC; 80048; 81003; 82550; 83735; 84100; 85025; 85027; 85610; 85730; 87086; 96365; 96367; 96372; 96375; 96376; 97116-GP; 97161-GP; 99285-25; G0378; J1644; Q9967

== ENCOUNTER 2023-01-05 02:33 | Inpatient (IN) | payer OTHER ==
[2023-01-05 03:50] LABS: POTASSIUM 4.5 mmol/L (3.5-5.1)
[2023-01-05 03:52] LABS: CALCIUM 9.2 mg/dL (8.5-10.1)
[2023-01-05 03:53] LABS: ALBUMIN 4.2 g/dl (3.4-5.0)
[2023-01-05 03:56] LABS: CREATININE 0.8 mg/dL (0.55-1.3)
[2023-01-05 03:57] LABS: BILIRUBIN,TOTAL 0.8 mg/dL (0.2-1)
[2023-01-05 03:58] LABS: TOT PROT 7.6 g/dl (6.4-8.2)
[2023-01-05 04:50] LABS: BASO % 0.2 % (0-2.0); EOS % 0.9 % (0-4.5); HEMATOCRIT 38.7 % (35.4-49); HEMOGLOBIN 13.2 GM/dL (11.7-16.9); LYMPH % 32.8 % (8-40); MCH 31.3 pg (25.7-33.7); MCHC 34.2 g/dl (32.0-35.9); MEAN CELL VOLUME 91.6 fl (80-96); MEAN PLT VOLUME 9.6 fl (7.5-11.1); MONO % 7.5 % (3.8-10.2); NEUT % 58.6 % (42.8-82.8); PLATELET COUNT 200 10^3/uL (134-434); RBC 4.22 M/mm3 (4.00-5.60); RDW 14.5 % (11.9-15.9); WHITE BLOOD COUNT 6.1 K/mm3 (4.0-10.0)
[2023-01-05 08:22] LABS: URINE APPEARANCE CLOUDY; URINE BILIRUBIN NEGATIVE (NEGATIVE); URINE COLOR YELLOW; URINE GLUCOSE (UA) NEGATIVE (NEGATIVE); URINE KETONE NEGATIVE (NEGATIVE)
[2023-01-05 08:23] LABS: EPI CELLS 2 /uL (0-25.1); HYALINE CASTS 0 /uL (0-3.1); PH,URINE 6.5 (5.0-8.0); URINE BACTERIA 3847 /uL (0-1359); URINE LEUK ESTERASE NEGATIVE (NEGATIVE); URINE NITRITE NEGATIVE (NEGATIVE); URINE PROTEIN NEGATIVE (NEGATIVE); URINE RBC 13 /uL (0-23.9); URINE WBC 41 /uL (0-25.8)
[2023-01-05] MEDS ORDERED: LACTATED RINGERS SOLUTION 1,000 ML/1,000 ML INFUS.BAG IV SCH (15:30)
[2023-01-05] MEDS ORDERED: LORazepam 2 MG/ML SDV VIAL IVPUSH PRN (16:16)
[2023-01-05] MEDS ORDERED: SODIUM PHOSPHATE/NA BIPHOS 133 ML ENEMA RC ONE ×2 (17:30→20:30)
[2023-01-05 18:44] VITALS: RESP 20
[2023-01-05] MEDS: HEPARIN NA (PORCINE) 5,000 UNITS/ML 1ML VIAL SQ SCH (21:39)
[2023-01-05] MEDS ORDERED: TAMSULOSIN HCL 0.4 MG CAP PO SCH (22:00)
[2023-01-05] MEDS ORDERED: POLYETHYLENE GLYCOL (HEALTHYLAX) 3350 17 GM PACKET PO SCH (22:00)
[2023-01-06] MEDS ORDERED: TAMSULOSIN HCL 0.4 MG CAP PO SCH (08:30)
[2023-01-06] MEDS ORDERED: LOSARTAN POTASSIUM 50 MG TABLET PO SCH (10:00)
[2023-01-06 10:14] LABS: HEMATOCRIT 40.1 % (35.4-49); MCH 30.4 pg (25.7-33.7); MCHC 32.5 g/dl (32.0-35.9); MEAN CELL VOLUME 93.4 fl (80-96); MEAN PLT VOLUME 9.2 fl (7.5-11.1); PLATELET COUNT 234 10^3/uL (134-434); RBC 4.29 M/mm3 (4.00-5.60); RDW 14.3 % (11.9-15.9); WHITE BLOOD COUNT 7.5 K/mm3 (4.0-10.0)
[2023-01-06 10:31] LABS: ALBUMIN 3.9 g/dl (3.4-5.0); BLOOD UREA NITROGEN 17.8 mg/dL (7-18); CALCIUM 9.2 mg/dL (8.5-10.1)
[2023-01-06] MEDS: HEPARIN NA (PORCINE) 5,000 UNITS/ML 1ML VIAL SQ SCH (10:33)
[2023-01-06 10:35] LABS: CREATININE 0.8 mg/dL (0.55-1.3)
[2023-01-06 10:36] LABS: BILIRUBIN,TOTAL 1.4 mg/dL (0.2-1)
[2023-01-06 14:01] VITALS: BP 147/82; PULSE 60; TEMP 98.2
== END 2023-01-06 15:42 | disposition home or self-care (01) | DRG 254 ==
LOC: JER 02:33 → JERBED 09:46 → J8W 12:56 → OBSVTOIN 01-06 09:37
PROVIDERS: ADMIT Internal Medicine; ATTEND Internal Medicine
DX: K59.01 Slow transit constipation (principal); I10 Essential (primary) hypertension; E78.5 Hyperlipidemia, unspecified; K42.9 Umbilical hernia without obstruction or gangrene; K40.20 Bilateral inguinal hernia, without obstruction or gangrene, not specified as recurrent; N31.9 Neuromuscular dysfunction of bladder, unspecified; R35.0 Frequency of micturition; G62.9 Polyneuropathy, unspecified; F06.8 Other specified mental disorders due to known physiological condition; K56.699 Other intestinal obstruction unspecified as to partial versus complete obstruction
CPT/HCPCS: 36415; 71045-TC-FY; 74019-TC-FY; 74177-TC; 80053; 81003; 84484; 85025; 85027; 87086; 87186; 93005; 93010; 99285-25; G0378; J1644; Q9967

== ENCOUNTER 2023-01-11 00:42 | Emergency (ER) | payer OTHER ==
[2023-01-11 01:08] VITALS: BMI 20.3
[2023-01-11 03:32] LABS: EPI CELLS 2 /uL (0-25.1); HYALINE CASTS 0 /uL (0-3.1); URINE APPEARANCE CLEAR; URINE BACTERIA 3883 /uL (0-1359); URINE BILIRUBIN NEGATIVE (NEGATIVE); URINE COLOR YELLOW; URINE GLUCOSE (UA) NEGATIVE (NEGATIVE); URINE KETONE NEGATIVE (NEGATIVE); URINE LEUK ESTERASE NEGATIVE (NEGATIVE); URINE NITRITE NEGATIVE (NEGATIVE); URINE PROTEIN NEGATIVE (NEGATIVE); URINE RBC 66 /uL (0-23.9); URINE WBC 6 /uL (0-25.8)
[2023-01-11] MEDS ORDERED: ACETAMINOPHEN 1000 MG/100 ML BAG IVPB ONE (03:40)
[2023-01-11] MEDS ORDERED: ACETAMINOPHEN INJECTION 100 ML IVPB ONE (03:45)
[2023-01-11 03:57] LABS: POTASSIUM 5.1 mmol/L (3.5-5.1)
[2023-01-11 03:59] LABS: CALCIUM 8.7 mg/dL (8.5-10.1)
[2023-01-11 04:00] LABS: ALBUMIN 3.6 g/dl (3.4-5.0); BLOOD UREA NITROGEN 11.6 mg/dL (7-18)
[2023-01-11 04:02] LABS: CREATININE 0.7 mg/dL (0.55-1.3)
[2023-01-11 04:05] LABS: BILIRUBIN,TOTAL 0.6 mg/dL (0.2-1); TOT PROT 6.8 g/dl (6.4-8.2)
[2023-01-11 05:25] VITALS: RESP 16; TEMP 98.5
[2023-01-11 05:53] LABS: BASO % 0.5 % (0-2.0); EOS % 0.6 % (0-4.5); HEMATOCRIT 39.4 % (35.4-49); HEMOGLOBIN 13.3 GM/dL (11.7-16.9); LYMPH % 43.5 % (8-40); MCH 31.4 pg (25.7-33.7); MCHC 33.9 g/dl (32.0-35.9); MEAN CELL VOLUME 92.8 fl (80-96); MEAN PLT VOLUME 9.6 fl (7.5-11.1); MONO % 6.2 % (3.8-10.2); NEUT % 49.2 % (42.8-82.8); PLATELET COUNT 215 10^3/uL (134-434); RBC 4.25 M/mm3 (4.00-5.60); RDW 14.4 % (11.9-15.9); WHITE BLOOD COUNT 6.2 K/mm3 (4.0-10.0)
[2023-01-11 07:51] VITALS: BP 165/68; PULSE 75
== END 2023-01-11 07:51 | disposition home or self-care (01) ==
LOC: JER 00:42
PROC: 3E033NZ Introduction of Analgesics, Hypnotics, Sedatives into Peripheral Vein, Percutaneous Approach (ICD-10-PCS; principal; 2023-01-11)
DX: R10.9 Unspecified abdominal pain (principal); K59.00 Constipation, unspecified; R11.0 Nausea
CPT/HCPCS: 36415; 74177-TC; 80053; 81003; 85025; 86900; 87086; 87186; 99285-25; J0131

== ENCOUNTER 2023-01-20 13:39 | Emergency (ER) | payer OTHER ==
[2023-01-20 13:47] VITALS: BMI 20.3
[2023-01-20] MEDS ORDERED: SODIUM CHLORIDE 0.9% 500 ML INFUS.BAG IV ONE (16:27)
[2023-01-20] MEDS ORDERED: KETOROLAC TROMETHAMINE 30 MG/1 ML VIAL IVPUSH ONE (16:32)
[2023-01-20] MEDS ORDERED: KETOROLAC TROMETHAMINE 30 MG/1 ML VIAL ONE (17:28)
[2023-01-20 17:30] LABS: BASO % 0.2 % (0-2.0); EOS % 0.9 % (0-4.5); HEMATOCRIT 31.4 % (35.4-49); HEMOGLOBIN 10.6 GM/dL (11.7-16.9); LYMPH % 41.9 % (8-40); MCH 31.4 pg (25.7-33.7); MCHC 33.6 g/dl (32.0-35.9); MEAN CELL VOLUME 93.4 fl (80-96); MONO % 8.3 % (3.8-10.2); NEUT % 48.7 % (42.8-82.8); PLATELET COUNT 215 10^3/uL (134-434); RBC 3.36 M/mm3 (4.00-5.60); RDW 14.3 % (11.9-15.9); WHITE BLOOD COUNT 5.7 K/mm3 (4.0-10.0)
[2023-01-20 17:31] LABS: EPI CELLS 1 /uL (0-25.1); HYALINE CASTS 0 /uL (0-3.1); PH,URINE 6.5 (5.0-8.0); URINE APPEARANCE CLEAR; URINE BACTERIA 10 /uL (0-1359); URINE BILIRUBIN NEGATIVE (NEGATIVE); URINE COLOR YELLOW; URINE GLUCOSE (UA) NEGATIVE (NEGATIVE); URINE KETONE NEGATIVE (NEGATIVE); URINE LEUK ESTERASE TRACE (NEGATIVE); URINE NITRITE NEGATIVE (NEGATIVE); URINE PROTEIN NEGATIVE (NEGATIVE); URINE RBC 30 /uL (0-23.9); URINE WBC 30 /uL (0-25.8)
[2023-01-20 17:45] LABS: CHLORIDE 106 mmol/L (98-107); POTASSIUM 4.1 mmol/L (3.5-5.1); SODIUM 141 mmol/L (136-145)
[2023-01-20 17:48] LABS: ALBUMIN 3.8 g/dl (3.4-5.0); ANION GAP 10 mmol/L (4-13); BLOOD UREA NITROGEN 17.8 mg/dL (7-18); CO2 25 mmol/L (21-32); GLUCOSE,RANDOM 78 mg/dL (74-106)
[2023-01-20 17:51] LABS: CREATININE 0.8 mg/dL (0.55-1.3); SGOT/AST 15 U/L (15-37); SGPT/ALT 26 U/L (13-61)
[2023-01-20 17:52] LABS: TOT PROT 7.2 g/dl (6.4-8.2)
[2023-01-20 17:53] LABS: BILIRUBIN,TOTAL 0.9 mg/dL (0.2-1)
[2023-01-20 17:54] LABS: ALK PHOS 76 U/L (45-117)
[2023-01-20 18:06] LABS: ERYTHROCYTE SEDIMENTATION RATE 4 mm/hr (0-20)
[2023-01-20] MEDS ORDERED: NITROFURANTOIN MONOHYD/M-CRYST 100 MG CAPSULE PO ONE (18:23)
[2023-01-20 19:05] VITALS: BP 121/79; PULSE 63; RESP 16; TEMP 98.2
[2023-01-20] MEDS ORDERED: NITROFURANTOIN MACROCRYSTAL 50 MG CAPSULE (FP) ONE (19:24)
== END 2023-01-20 19:49 | disposition home or self-care (01) ==
LOC: JER 13:39
PROC: 3E0333Z Introduction of Anti-inflammatory into Peripheral Vein, Percutaneous Approach (ICD-10-PCS; principal; 2023-01-20)
DX: R10.30 Lower abdominal pain, unspecified (principal); N30.00 Acute cystitis without hematuria
CPT/HCPCS: 36415; 80053; 81003; 85025; 85651; 86140; 87086; 99284-25

== ENCOUNTER 2023-03-31 23:57 | Emergency (ER) | payer OTHER ==
[2023-04-01 00:02] VITALS: BMI 21.1
[2023-04-01] MEDS ORDERED: ACETAMINOPHEN INJECTION 100 ML IVPB ONE (00:57)
[2023-04-01] MEDS ORDERED: POLYETHYLENE GLYCOL (HEALTHYLAX) 3350 17 GM PACKET ONE (00:57)
[2023-04-01] MEDS: ACETAMINOPHEN 1000 MG/100 ML BAG IVPB ONE (01:06)
[2023-04-01] MEDS: POLYETHYLENE GLYCOL (HEALTHYLAX) 3350 17 GM PACKET PO ONE (01:06)
[2023-04-01 01:14] LABS: BASO % 0.1 % (0-2.0); EOS % 1.2 % (0-4.5); HEMOGLOBIN 14.2 GM/dL (11.7-16.9); LYMPH % 39.4 % (8-40); MCH 31.9 pg (25.7-33.7); MCHC 34.7 g/dl (32.0-35.9); MEAN CELL VOLUME 92.1 fl (80-96); MEAN PLT VOLUME 8.6 fl (7.5-11.1); MONO % 9.6 % (3.8-10.2); NEUT % 49.7 % (42.8-82.8); PLATELET COUNT 216 10^3/uL (134-434); RBC 4.46 M/mm3 (4.00-5.60); RDW 13.7 % (11.9-15.9); WHITE BLOOD COUNT 7.1 K/mm3 (4.0-10.0)
[2023-04-01 01:32] LABS: POTASSIUM 4.2 mmol/L (3.5-5.1)
[2023-04-01 01:33] LABS: ALBUMIN 3.6 g/dl (3.4-5.0); CALCIUM 9.1 mg/dL (8.5-10.1)
[2023-04-01 01:35] LABS: BLOOD UREA NITROGEN 14.7 mg/dL (7-18); MAGNESIUM 2.1 mg/dL (1.8-2.4)
[2023-04-01 01:36] LABS: CREATININE 0.8 mg/dL (0.55-1.3)
[2023-04-01 02:24] LABS: EPI CELLS 6 /uL (0-25.1); HYALINE CASTS 2 /uL (0-3.1); URINE APPEARANCE CLEAR; URINE BACTERIA 6 /uL (0-1359); URINE BILIRUBIN NEGATIVE (NEGATIVE); URINE COLOR DK YELLOW; URINE GLUCOSE (UA) NEGATIVE (NEGATIVE); URINE KETONE TRACE (NEGATIVE); URINE LEUK ESTERASE NEGATIVE (NEGATIVE); URINE NITRITE NEGATIVE (NEGATIVE); URINE PROTEIN 1+ (NEGATIVE); URINE WBC 39 /uL (0-25.8)
[2023-04-01 05:47] VITALS: BP 145/92; PULSE 53; RESP 16; TEMP 97.7
== END 2023-04-01 07:45 | disposition home or self-care (01) ==
LOC: JER 23:57
PROC: 3E033NZ Introduction of Analgesics, Hypnotics, Sedatives into Peripheral Vein, Percutaneous Approach (ICD-10-PCS; principal; 2023-04-01)
DX: R10.84 Generalized abdominal pain (principal); R30.9 Painful micturition, unspecified
CPT/HCPCS: 36415; 74177-TC; 80053; 81003; 83605; 83690; 83735; 84484; 85025; 87086; 93005; 93010; 99285-25; J0131; Q9967

== ENCOUNTER 2023-05-19 07:02 | Emergency (ER) | payer OTHER ==
[2023-05-19 07:35] VITALS: BMI 21.9
[2023-05-19] MEDS ORDERED: SODIUM CHLORIDE 1,000 ML IV STA (07:44)
[2023-05-19] MEDS ORDERED: ACETAMINOPHEN INJECTION 100 ML IVPB ONE (07:59)
[2023-05-19 08:09] LABS: BASO % 0.4 % (0-2.0); EOS % 0.3 % (0-4.5); HEMATOCRIT 40.1 % (35.4-49); HEMOGLOBIN 13.2 GM/dL (11.7-16.9); LYMPH % 29.7 % (8-40); MCH 30.9 pg (25.7-33.7); MCHC 32.9 g/dl (32.0-35.9); MEAN CELL VOLUME 93.8 fl (80-96); MEAN PLT VOLUME 8.9 fl (7.5-11.1); MONO % 11.7 % (3.8-10.2); NEUT % 57.9 % (42.8-82.8); PLATELET COUNT 243 10^3/uL (134-434); RBC 4.28 M/mm3 (4.00-5.60); RDW 14.1 % (11.9-15.9); WHITE BLOOD COUNT 6.3 K/mm3 (4.0-10.0)
[2023-05-19 08:10] LABS: INR 1.1 (0.83-1.09); PROTHROMBIN TIME (PATIENT) 12.8 SEC (9.7-13.0)
[2023-05-19 08:13] LABS: ACTIVATED PTT 31.4 SECONDS (25.2-36.5)
[2023-05-19] MEDS: ACETAMINOPHEN 1000 MG/100 ML BAG IVPB ONE (08:13)
[2023-05-19 08:16] LABS: EPI CELLS 7 /uL (0-25.1); HYALINE CASTS 1 /uL (0-3.1); PH,URINE 5.5 (5.0-8.0); URINE APPEARANCE CLEAR; URINE BACTERIA 0 /uL (0-1359); URINE BILIRUBIN NEGATIVE (NEGATIVE); URINE COLOR DK YELLOW; URINE GLUCOSE (UA) NEGATIVE (NEGATIVE); URINE KETONE 1+ (NEGATIVE); URINE LEUK ESTERASE TRACE (NEGATIVE); URINE NITRITE NEGATIVE (NEGATIVE); URINE PROTEIN TRACE (NEGATIVE); URINE RBC 41 /uL (0-23.9); URINE WBC 36 /uL (0-25.8)
[2023-05-19 08:30] LABS: POTASSIUM 4.4 mmol/L (3.5-5.1)
[2023-05-19 08:32] LABS: CALCIUM 9.7 mg/dL (8.5-10.1)
[2023-05-19 08:33] LABS: ALBUMIN 3.7 g/dl (3.4-5.0); BLOOD UREA NITROGEN 17.6 mg/dL (7-18)
[2023-05-19 08:35] LABS: CREATININE 0.8 mg/dL (0.55-1.3)
[2023-05-19 08:37] LABS: BILIRUBIN,TOTAL 1.7 mg/dL (0.2-1)
[2023-05-19 11:21] VITALS: BP 118/68; PULSE 71; RESP 20; TEMP 99
== END 2023-05-19 11:33 | disposition home or self-care (01) ==
LOC: JER 07:02
PROC: 3E030NZ Introduction of Analgesics, Hypnotics, Sedatives into Peripheral Vein, Open Approach (ICD-10-PCS; principal; 2023-05-19)
DX: K43.9 Ventral hernia without obstruction or gangrene (principal); N30.00 Acute cystitis without hematuria; R10.9 Unspecified abdominal pain
CPT/HCPCS: 36415; 74177-TC; 80053; 81003; 83690; 85025; 85610; 85730; 86850; 86900; 86901; 87086; 93005; 93010; 99285-25; J0131; Q9967

== ENCOUNTER 2023-07-19 07:39 | Emergency (ER) | payer OTHER ==
[2023-07-19 07:47] VITALS: BP 115/77; PULSE 58; RESP 18; TEMP 99.5; BMI 22.7
[2023-07-19 09:17] LABS: EPI CELLS 1 /uL (0-25.1); HYALINE CASTS 1 /uL (0-3.1); PH,URINE 5.5 (5.0-8.0); URINE APPEARANCE CLEAR; URINE BILIRUBIN NEGATIVE (NEGATIVE); URINE COLOR DK YELLOW; URINE GLUCOSE (UA) NEGATIVE (NEGATIVE); URINE KETONE TRACE (NEGATIVE); URINE LEUK ESTERASE TRACE (NEGATIVE); URINE NITRITE POSITIVE (NEGATIVE); URINE PROTEIN TRACE (NEGATIVE); URINE RBC 15 /uL (0-23.9); URINE WBC 161 /uL (0-25.8)
[2023-07-19 09:56] LABS: URINE BACTERIA 540.5 /uL (0-1359)
[2023-07-19] MEDS ORDERED: IBUPROFEN 600 MG TABLET (FP) PO ONE (10:53)
[2023-07-19] MEDS ORDERED: SULFAMETHOXAZOLE/TRIMETHOPRIM 800MG/160MG D.S. TABLET ONE (10:53)
[2023-07-19] MEDS: IBUPROFEN 600 MG TABLET (FP) PO ONE (11:02)
[2023-07-19] MEDS: SODIUM PHOSPHATE/NA BIPHOS 133 ML ENEMA PR ONE (11:02)
[2023-07-19] MEDS: SULFAMETHOXAZOLE/TRIMETHOPRIM 800MG/160MG D.S. TABLET PO ONE (11:02)
== END 2023-07-19 11:52 | disposition home or self-care (01) ==
LOC: JER 07:39
DX: N39.0 Urinary tract infection, site not specified (principal); K59.00 Constipation, unspecified; N48.89 Other specified disorders of penis
CPT/HCPCS: 74018-TC-FY; 81003; 87086; 99284-25

== ENCOUNTER 2023-12-02 09:04 | Emergency (ER) | payer OTHER ==
[2023-12-02 09:12] VITALS: BMI 29.2
[2023-12-02 10:55] LABS: EPI CELLS 1 /uL (0-25.1); HYALINE CASTS 0 /uL (0-3.1); PH,URINE 5.5 (5.0-8.0); URINE APPEARANCE CLEAR; URINE BACTERIA 404 /uL (0-1359); URINE BILIRUBIN NEGATIVE (NEGATIVE); URINE COLOR YELLOW; URINE GLUCOSE (UA) NEGATIVE (NEGATIVE); URINE KETONE NEGATIVE (NEGATIVE); URINE LEUK ESTERASE TRACE (NEGATIVE); URINE NITRITE NEGATIVE (NEGATIVE); URINE PROTEIN NEGATIVE (NEGATIVE); URINE RBC 8 /uL (0-23.9); URINE UROBILINOGEN 0.2 mg/dL (0.2-1.0); URINE WBC 22 /uL (0-25.8)
[2023-12-02] MEDS ORDERED: ACETAMINOPHEN 325 MG TABLET (FP) ONE (11:35)
[2023-12-02] MEDS ORDERED: MAGNESIUM CITRATE 300 ML BOTTLE ONE (11:36)
[2023-12-02 11:42] LABS: YEAST NONE SEEN (NEGATIVE)
[2023-12-02] MEDS: ACETAMINOPHEN 500 MG TABLET (FP) PO ONE (11:43)
[2023-12-02] MEDS: MAGNESIUM CITRATE 300 ML BOTTLE PO ONE (11:43)
[2023-12-02 12:40] LABS: HEMATOCRIT 40.1 % (35.4-49); HEMOGLOBIN 13.5 GM/dL (11.7-16.9); MCH 30.6 pg (25.7-33.7); MCHC 33.7 g/dl (32.0-35.9); MEAN CELL VOLUME 90.7 fl (80-96); MEAN PLT VOLUME 9.1 fl (7.5-11.1); PLATELET COUNT 222 10^3/uL (134-434); RBC 4.43 M/mm3 (4.00-5.60); RDW 14.4 % (11.9-15.9); WHITE BLOOD COUNT 8.3 K/mm3 (4.0-10.0)
[2023-12-02 13:10] LABS: POTASSIUM 4.9 mmol/L (3.5-5.1)
[2023-12-02 13:13] LABS: ALBUMIN 3.6 g/dl (3.4-5.0); BLOOD UREA NITROGEN 17.1 mg/dL (7-18); CALCIUM 9.3 mg/dL (8.5-10.1)
[2023-12-02 13:18] LABS: BILIRUBIN,TOTAL 0.8 mg/dL (0.2-1); CREATININE 0.8 mg/dL (0.55-1.3); TOT PROT 6.8 g/dl (6.4-8.2)
[2023-12-02] MEDS: NITROFURANTOIN MONOHYD/M-CRYST 100 MG CAPSULE PO ONE (13:39)
[2023-12-02 14:38] VITALS: BP 152/74; PULSE 58; RESP 20; TEMP 98.8
== END 2023-12-02 14:56 | disposition home or self-care (01) ==
LOC: JER 09:04
DX: N39.0 Urinary tract infection, site not specified (principal); K59.00 Constipation, unspecified; R30.0 Dysuria; R10.30 Lower abdominal pain, unspecified
CPT/HCPCS: 36415; 74019-TC-FY; 80053; 81003; 82272; 85027; 87086; 99284-25

== ENCOUNTER 2023-12-06 10:25 | Emergency (ER) | payer OTHER ==
[2023-12-06 10:38] VITALS: RESP 18; BMI 25.0
[2023-12-06 12:47] LABS: BASO % 0.3 % (0-2.0); EOS % 0.7 % (0-4.5); HEMATOCRIT 41.4 % (35.4-49); HEMOGLOBIN 13.9 GM/dL (11.7-16.9); LYMPH % 35.7 % (8-40); MCH 30.3 pg (25.7-33.7); MCHC 33.5 g/dl (32.0-35.9); MEAN CELL VOLUME 90.6 fl (80-96); MEAN PLT VOLUME 8.7 fl (7.5-11.1); MONO % 8.7 % (3.8-10.2); NEUT % 54.6 % (42.8-82.8); PLATELET COUNT 208 10^3/uL (134-434); RBC 4.57 M/mm3 (4.00-5.60); RDW 14.6 % (11.9-15.9); WHITE BLOOD COUNT 5.3 K/mm3 (4.0-10.0)
[2023-12-06 13:14] LABS: POTASSIUM 4.3 mmol/L (3.5-5.1)
[2023-12-06 13:16] LABS: CALCIUM 9.2 mg/dL (8.5-10.1)
[2023-12-06 13:17] LABS: ALBUMIN 3.6 g/dl (3.4-5.0); BLOOD UREA NITROGEN 19.7 mg/dL (7-18)
[2023-12-06 13:21] LABS: BILIRUBIN,TOTAL 0.8 mg/dL (0.2-1)
[2023-12-06 14:03] LABS: HIV INTERPRETATION NEGATIVE (NEGATIVE)
[2023-12-06] MEDS ORDERED: MAGNESIUM CITRATE 300 ML BOTTLE ONE (17:51)
[2023-12-06] MEDS: MAGNESIUM CITRATE 300 ML BOTTLE PO ONE (17:53)
[2023-12-06 18:17] VITALS: BP 135/77; PULSE 65; TEMP 98.6
== END 2023-12-06 18:17 | disposition home or self-care (01) ==
LOC: JER 10:25
DX: K59.00 Constipation, unspecified (principal); K43.9 Ventral hernia without obstruction or gangrene; R10.13 Epigastric pain; R10.32 Left lower quadrant pain
CPT/HCPCS: 36415; 74177-TC; 80053; 83690; 85025; 86803; 87389; 99285-25; Q9967

== ENCOUNTER 2023-12-10 11:10 | Emergency (ER) | payer OTHER ==
[2023-12-10 11:26] VITALS: RESP 20; BMI 25.0
[2023-12-10] MEDS ORDERED: ACETAMINOPHEN INJECTION 100 ML ONE (12:46)
[2023-12-10] MEDS ORDERED: MAGNESIUM CITRATE 300 ML BOTTLE ONE (12:47)
[2023-12-10 13:17] LABS: BASO % 0.3 % (0-2.0); EOS % 1.1 % (0-4.5); HEMATOCRIT 38.4 % (35.4-49); HEMOGLOBIN 13.2 GM/dL (11.7-16.9); LYMPH % 23.2 % (8-40); MCH 30.9 pg (25.7-33.7); MCHC 34.3 g/dl (32.0-35.9); MEAN CELL VOLUME 90.2 fl (80-96); MEAN PLT VOLUME 8.3 fl (7.5-11.1); MONO % 8.9 % (3.8-10.2); NEUT % 66.5 % (42.8-82.8); PLATELET COUNT 222 10^3/uL (134-434); RBC 4.25 M/mm3 (4.00-5.60); RDW 14.3 % (11.9-15.9); WHITE BLOOD COUNT 5.7 K/mm3 (4.0-10.0)
[2023-12-10 13:22] LABS: INR 1.05 (0.83-1.09); PROTHROMBIN TIME (PATIENT) 11.8 SEC (9.7-13.0)
[2023-12-10 13:25] LABS: ACTIVATED PTT 34.7 SECONDS (25.2-36.5)
[2023-12-10] MEDS: DULoxetine HCL 20 MG CAPSULE.DR PO ONE (13:40)
[2023-12-10 14:16] LABS: POTASSIUM 4.5 mmol/L (3.5-5.1)
[2023-12-10 14:18] LABS: ALBUMIN 3.5 g/dl (3.4-5.0); CALCIUM 8.8 mg/dL (8.5-10.1)
[2023-12-10 14:19] LABS: BLOOD UREA NITROGEN 15.6 mg/dL (7-18); MAGNESIUM 1.9 mg/dL (1.8-2.4)
[2023-12-10 14:22] LABS: CREATININE 0.9 mg/dL (0.55-1.3); PHOSPHOROUS 2.4 mg/dL (2.5-4.9)
[2023-12-10 14:23] LABS: BILIRUBIN,TOTAL 0.9 mg/dL (0.2-1); TOT PROT 6.7 g/dl (6.4-8.2)
[2023-12-10] MEDS: MAGNESIUM CITRATE 300 ML BOTTLE PO ONE (14:55)
[2023-12-10] MEDS: SODIUM CHLORIDE 0.9% 500 ML INFUS.BAG IV ONE (14:55)
[2023-12-10] MEDS: ACETAMINOPHEN 1000 MG/100 ML BAG IVPB ONE (14:55)
[2023-12-10 16:08] VITALS: BP 154/67; PULSE 58; TEMP 98.2
== END 2023-12-10 17:54 | disposition left against medical advice (07) ==
LOC: JER 11:10
PROC: 3E033NZ Introduction of Analgesics, Hypnotics, Sedatives into Peripheral Vein, Percutaneous Approach (ICD-10-PCS; principal; 2023-12-10)
DX: K59.00 Constipation, unspecified (principal)
CPT/HCPCS: 36415; 74177-TC; 80053; 83690; 83735; 84100; 85025; 85610; 85730; 96374; 99285-25; J0131

== ENCOUNTER 2023-12-11 13:25 | Inpatient (IN) | payer OTHER ==
[2023-12-11] MEDS ORDERED: POLYETHYLENE GLYCOL (HEALTHYLAX) 3350 17 GM PACKET ONE (16:44)
[2023-12-11] MEDS ORDERED: LACTULOSE 20 GM/30 ML UDC (FOR ORAL USE ONLY) ONE (16:45)
[2023-12-11] MEDS: LACTULOSE 20 GM/30 ML UDC (FOR ORAL USE ONLY) PO ONE (17:14)
[2023-12-11] MEDS: POLYETHYLENE GLYCOL (HEALTHYLAX) 3350 17 GM PACKET PO ONE (17:14)
[2023-12-11] MEDS ORDERED: D5-1/2NS+20 MEQ KCL - 20 MEQ/1,000 ML INFUS.BAG IV SCH (17:15)
[2023-12-11 17:20] LABS: BASO % 0.3 % (0-2.0); HEMATOCRIT 40.4 % (35.4-49); HEMOGLOBIN 13.6 GM/dL (11.7-16.9); LYMPH % 31.3 % (8-40); MCH 30.2 pg (25.7-33.7); MCHC 33.7 g/dl (32.0-35.9); MEAN CELL VOLUME 89.8 fl (80-96); MEAN PLT VOLUME 8.2 fl (7.5-11.1); NEUT % 58.4 % (42.8-82.8); PLATELET COUNT 253 10^3/uL (134-434); RBC 4.49 M/mm3 (4.00-5.60); RDW 14.3 % (11.9-15.9); WHITE BLOOD COUNT 7.3 K/mm3 (4.0-10.0)
[2023-12-11] MEDS ORDERED: ACETAMINOPHEN 325 MG TABLET (FP) ONE (19:38)
[2023-12-11] MEDS: ACETAMINOPHEN 325 MG TABLET (FP) PO PRN (19:42)
[2023-12-11 20:10] LABS: POTASSIUM 4.3 mmol/L (3.5-5.1)
[2023-12-11 20:12] LABS: ALBUMIN 3.7 g/dl (3.4-5.0); BLOOD UREA NITROGEN 14.4 mg/dL (7-18)
[2023-12-11 20:15] LABS: CREATININE 0.9 mg/dL (0.55-1.3)
[2023-12-11 20:17] LABS: BILIRUBIN,TOTAL 0.8 mg/dL (0.2-1)
[2023-12-11 21:05] VITALS: BMI 26.5
[2023-12-11] MEDS: GABAPENTIN 300 MG CAPSULE PO SCH (22:25)
[2023-12-11] MEDS: POLYETHYLENE GLYCOL (HEALTHYLAX) 3350 17 GM PACKET PO SCH (22:25)
[2023-12-11] MEDS: TAMSULOSIN HCL 0.4 MG CAP PO SCH (22:25)
[2023-12-11] MEDS: HEPARIN NA (PORCINE) 5,000 UNITS/ML 1ML VIAL SQ SCH (22:25)
[2023-12-12 00:09] LABS: EPI CELLS 0 /uL (0-25.1); HYALINE CASTS 1 /uL (0-3.1); PH,URINE 5.5 (5.0-8.0); URINE APPEARANCE CLEAR; URINE BILIRUBIN 1+ (NEGATIVE); URINE COLOR DK YELLOW; URINE GLUCOSE (UA) NEGATIVE (NEGATIVE); URINE KETONE TRACE (NEGATIVE); URINE LEUK ESTERASE 1+ (NEGATIVE); URINE NITRITE POSITIVE (NEGATIVE); URINE PROTEIN 1+ (NEGATIVE); URINE RBC 16 /uL (0-23.9); URINE WBC 171 /uL (0-25.8)
[2023-12-12 04:14] LABS: YEAST MANY (NEGATIVE)
[2023-12-12] MEDS: SODIUM PHOSPHATE/NA BIPHOS 133 ML ENEMA PR ONE (06:33)
[2023-12-12 08:58] LABS: POTASSIUM 4.2 mmol/L (3.5-5.1)
[2023-12-12 09:04] LABS: ALBUMIN 3.6 g/dl (3.4-5.0); BLOOD UREA NITROGEN 14.4 mg/dL (7-18); MAGNESIUM 2.2 mg/dL (1.8-2.4)
[2023-12-12 09:08] LABS: TOT PROT 6.6 g/dl (6.4-8.2)
[2023-12-12] MEDS: PANTOPRAZOLE 40 MG TABLET PO SCH (09:17)
[2023-12-12 09:41] LABS: BASO % 0.2 % (0-2.0); HEMATOCRIT 40.2 % (35.4-49); HEMOGLOBIN 13.3 GM/dL (11.7-16.9); LYMPH % 38.6 % (8-40); MCH 30.5 pg (25.7-33.7); MCHC 33.2 g/dl (32.0-35.9); MEAN CELL VOLUME 91.8 fl (80-96); MEAN PLT VOLUME 9.5 fl (7.5-11.1); MONO % 10.8 % (3.8-10.2); NEUT % 48.4 % (42.8-82.8); PLATELET COUNT 232 10^3/uL (134-434); RBC 4.37 M/mm3 (4.00-5.60); RDW 14.3 % (11.9-15.9); WHITE BLOOD COUNT 5.4 K/mm3 (4.0-10.0)
[2023-12-12] MEDS: LOSARTAN POTASSIUM 50 MG TABLET PO SCH (10:20)
[2023-12-12] MEDS: POLYETHYLENE GLYCOL (HEALTHYLAX) 3350 17 GM PACKET PO SCH (14:47)
[2023-12-12 15:16] VITALS: BP 140/68; PULSE 60; RESP 19; TEMP 98.9
== END 2023-12-12 17:50 | disposition home or self-care (01) | DRG 390 ==
LOC: JER 13:25 → JERBED 16:41 → OBSVTOIN 17:13 → J7W 20:18
PROVIDERS: ADMIT Family Medicine; ATTEND Family Medicine
DX: K56.41 Fecal impaction (principal); I10 Essential (primary) hypertension; E78.5 Hyperlipidemia, unspecified; K21.9 Gastro-esophageal reflux disease without esophagitis; N40.0 Benign prostatic hyperplasia without lower urinary tract symptoms
CPT/HCPCS: 36415; 74018-TC-FY; 74019-TC-FY; 80053; 81003; 83735; 84443; 85025; 87086; 99285-25; G0378; J1644

== ENCOUNTER 2023-12-15 12:43 | Day surgery (SDC) | payer OTHER ==
[2023-12-15 13:06] VITALS: BMI 25.8
[2023-12-15] MEDS ORDERED: MORPHINE SULFATE 2 MG/ML SYRINGE ONE (16:22)
[2023-12-15] MEDS ORDERED: cefOXitin SODIUM 2 GM VIAL (RESTRICTED TO ID) IVPB ONE (16:26)
[2023-12-15] MEDS ORDERED: BUPIVACAINE HCL/PF 0.25% (2.5MG/ML) 10 ML VIAL ONE (16:26)
[2023-12-15] MEDS: DEXTROSE 5%-LACTATED RINGERS 1,000 ML IV SCH (16:30)
[2023-12-15] MEDS: morphine CARPU-JECT 2 MG/1 ML DISP.SYRIN IVPUSH ONE (16:30)
[2023-12-15 16:33] LABS: BASO % 0.2 % (0-2.0); HEMATOCRIT 41.7 % (35.4-49); HEMOGLOBIN 14.2 GM/dL (11.7-16.9); LYMPH % 19.7 % (8-40); MCH 30.6 pg (25.7-33.7); MEAN CELL VOLUME 90.1 fl (80-96); MEAN PLT VOLUME 8.3 fl (7.5-11.1); MONO % 9.1 % (3.8-10.2); PLATELET COUNT 273 10^3/uL (134-434); RBC 4.63 M/mm3 (4.00-5.60); RDW 14.8 % (11.9-15.9)
[2023-12-15 16:40] LABS: INR 0.94 (0.83-1.09); PROTHROMBIN TIME (PATIENT) 10.8 SEC (9.7-13.0)
[2023-12-15 16:42] LABS: ACTIVATED PTT 37.4 SECONDS (25.2-36.5)
[2023-12-15 16:50] LABS: POTASSIUM 4.3 mmol/L (3.5-5.1)
[2023-12-15 16:52] LABS: CALCIUM 9.2 mg/dL (8.5-10.1)
[2023-12-15 16:53] LABS: ALBUMIN 3.8 g/dl (3.4-5.0); BLOOD UREA NITROGEN 14.4 mg/dL (7-18)
[2023-12-15 16:56] LABS: CREATININE 0.9 mg/dL (0.55-1.3)
[2023-12-15 16:57] LABS: BILIRUBIN,TOTAL 0.8 mg/dL (0.2-1); TOT PROT 7.4 g/dl (6.4-8.2)
[2023-12-15] MEDS ORDERED: ONDANSETRON 4 MG/2 ML VIAL IVPUSH PRN ×2 (19:54→23:11)
[2023-12-15] MEDS ORDERED: ACETAMINOPHEN 1000 MG/100 ML BAG IVPB PRN (19:55)
[2023-12-15] MEDS ORDERED: HYDROmorphone HCl 2 MG/ML VIAL ONE (19:59)
[2023-12-15] MEDS ORDERED: PROPOFOL 20 ML ONE (19:59)
[2023-12-15] MEDS ORDERED: MIDAZOLAM HCL 2 MG/2 ML SINGLE DOSE VIAL ONE (19:59)
[2023-12-15] MEDS ORDERED: ROCURONIUM BROMIDE 50 MG/5 ML SYRINGE ONE ×2 (20:00→20:56)
[2023-12-15] MEDS ORDERED: SUGAMMADEX SODIUM 200 MG/2 ML VIAL ONE (20:00)
[2023-12-15] MEDS ORDERED: LIDOCAINE HCL/PF 2% SDV 5ML VIAL ONE (20:00)
[2023-12-15] MEDS ORDERED: DEXAMETHASONE SOD PHOSPHATE 4 MG/1 ML VIAL ONE (20:00)
[2023-12-15] MEDS ORDERED: ONDANSETRON 4 MG/2 ML VIAL ONE (20:00)
[2023-12-15] MEDS: cefOXitin SODIUM 1 GM VIAL (RESTRICTED TO ID) IVPB ONE (20:32)
[2023-12-15] MEDS: BUPIVACAINE HCL/PF 2.5 MG/ML - 30 ML VIAL IJ ONE (20:41)
[2023-12-15] MEDS ORDERED: KETOROLAC TROMETHAMINE 30 MG/1 ML VIAL ONE (21:51)
[2023-12-15] MEDS: LACTATED RINGERS SOLUTION 1,000 ML IV SCH (22:30)
[2023-12-15] MEDS ORDERED: LACTATED RINGERS SOLUTION 1,000 ML IV SCH (23:11)
[2023-12-15] MEDS ORDERED: KETOROLAC TROMETHAMINE 15 MG/ML VIAL IVPUSH PRN (23:11)
[2023-12-16 00:36] LABS: EPI CELLS 8 /uL (0-25.1); HYALINE CASTS 2 /uL (0-3.1); URINE APPEARANCE CLOUDY; URINE BILIRUBIN NEGATIVE (NEGATIVE); URINE COLOR DK YELLOW; URINE GLUCOSE (UA) NEGATIVE (NEGATIVE); URINE KETONE 1+ (NEGATIVE); URINE LEUK ESTERASE TRACE (NEGATIVE); URINE NITRITE POSITIVE (NEGATIVE); URINE PROTEIN 2+ (NEGATIVE); URINE UROBILINOGEN 0.2 mg/dL (0.2-1.0); URINE WBC 181 /uL (0-25.8)
[2023-12-16 02:25] LABS: URINE BACTERIA 112.4 /uL (0-1359); URINE RBC 191.6 /uL (0-23.9); YEAST NONE SEEN (NEGATIVE)
[2023-12-16] MEDS: CEFOXITIN SODIUM 1 GM in DEXTROSE 5%-WATER - 100 ML IVPB ONE (05:03)
[2023-12-16] MEDS: ACETAMINOPHEN 1000 MG/100 ML BAG IVPB SCH (05:05)
[2023-12-16 07:55] LABS: POTASSIUM 4.5 mmol/L (3.5-5.1)
[2023-12-16 07:59] LABS: CALCIUM 8.3 mg/dL (8.5-10.1); MAGNESIUM 1.8 mg/dL (1.8-2.4)
[2023-12-16 08:02] LABS: CREATININE 1.1 mg/dL (0.55-1.3); PHOSPHOROUS 3.2 mg/dL (2.5-4.9)
[2023-12-16 08:13] LABS: BASO % 0.1 % (0-2.0); HEMATOCRIT 34.8 % (35.4-49); HEMOGLOBIN 11.8 GM/dL (11.7-16.9); LYMPH % 5.3 % (8-40); MCH 30.9 pg (25.7-33.7); MEAN CELL VOLUME 90.7 fl (80-96); MONO % 7.1 % (3.8-10.2); NEUT % 87.5 % (42.8-82.8); PLATELET COUNT 230 10^3/uL (134-434); RBC 3.84 M/mm3 (4.00-5.60); RDW 14.2 % (11.9-15.9); WHITE BLOOD COUNT 14.1 K/mm3 (4.0-10.0)
[2023-12-16] MEDS: PANTOPRAZOLE 40 MG TABLET PO SCH (10:24)
[2023-12-16] MEDS: LOSARTAN POTASSIUM 50 MG TABLET PO SCH (10:25)
[2023-12-16] MEDS: LACTATED RINGERS SOLUTION 1,000 ML IV SCH (11:34)
[2023-12-16] MEDS: oxyCODONE HCL 5 MG TABLET PO PRN (16:31)
[2023-12-16] MEDS: KETOROLAC TROMETHAMINE 15 MG/ML VIAL IVPUSH PRN (16:43)
[2023-12-16] MEDS: CEFOXITIN SODIUM 1 GM in DEXTROSE 5%-WATER - 100 ML IVPB SCH (19:06)
[2023-12-16] MEDS: WATER IVPB SCH (20:20)
[2023-12-16] MEDS: DEXTROSE 5% IVPB SCH (20:20)
[2023-12-16] MEDS: CEFOXITIN SODIUM IVPB SCH (20:20)
[2023-12-16] MEDS: TAMSULOSIN HCL 0.4 MG CAP PO SCH (21:07)
[2023-12-17] MEDS ORDERED: DOCUSATE NA 100 MG/10 ML UNIT-DOSE CUPS PO PRN (10:37)
[2023-12-17] MEDS: HEPARIN NA (PORCINE) 5,000 UNITS/ML 1ML VIAL SQ SCH (10:50)
[2023-12-17] MEDS: BISACODYL 10 MG SUPP.RECT PR ONE (10:51)
[2023-12-17] MEDS: ACETAMINOPHEN 500 MG TABLET (FP) PO SCH (10:51)
[2023-12-17 11:06] LABS: BASO % 0.2 % (0-2.0); EOS % 3.9 % (0-4.5); HEMATOCRIT 35.7 % (35.4-49); HEMOGLOBIN 11.9 GM/dL (11.7-16.9); LYMPH % 15.8 % (8-40); MCH 30.4 pg (25.7-33.7); MCHC 33.3 g/dl (32.0-35.9); MEAN CELL VOLUME 91.4 fl (80-96); MEAN PLT VOLUME 8.6 fl (7.5-11.1); MONO % 9.8 % (3.8-10.2); NEUT % 70.3 % (42.8-82.8); PLATELET COUNT 215 10^3/uL (134-434); RBC 3.91 M/mm3 (4.00-5.60); RDW 14.5 % (11.9-15.9)
[2023-12-17 11:27] LABS: POTASSIUM 4.1 mmol/L (3.5-5.1)
[2023-12-17 11:28] LABS: CALCIUM 8.3 mg/dL (8.5-10.1)
[2023-12-17 11:29] LABS: BLOOD UREA NITROGEN 10.2 mg/dL (7-18)
[2023-12-17 11:32] LABS: CREATININE 0.9 mg/dL (0.55-1.3)
[2023-12-17 20:04] VITALS: RESP 18
[2023-12-17] MEDS: SENNOSIDES 8.8 MG/5 ML SYRUP PO SCH (21:05)
[2023-12-18 13:58] VITALS: BP 140/71; PULSE 59; TEMP 99.1
== END 2023-12-18 14:40 | disposition home or self-care (01) ==
LOC: JER 12:43 → JASU-SURG 17:05 → UNDOADMIN 17:05 → JERBED 17:05 → SUATTDRO 17:05 → J6S 18:21 → JERBED 18:21 → J6S 12-17 16:11 → JASU-SURG 12-18 14:40
PROVIDERS: ATTEND Family Medicine
PROC: 0WJF4ZZ Inspection of Abdominal Wall, Percutaneous Endoscopic Approach (ICD-10-PCS; 2023-12-15)
PROC: 0WUF0JZ Supplement Abdominal Wall with Synthetic Substitute, Open Approach (ICD-10-PCS; principal; 2023-12-15 17:00)
DX: K43.6 Other and unspecified ventral hernia with obstruction, without gangrene (principal)
CPT/HCPCS: 36415; 71046-TC-FY; 80048; 80053; 81003; 82962; 83605; 83735; 84100; 85025; 85610; 85730; 86850; 86900; 86901; 87040; 87086; 88302-TC; 93005; 93010; 94760; 97116-GP; 97162-GP; 99285-25; C1781; J0131

== ENCOUNTER 2023-12-19 11:19 | Emergency (ER) | payer OTHER ==
[2023-12-19 11:27] VITALS: BP 161/93; PULSE 66; RESP 18; TEMP 98.8; BMI 25.0
[2023-12-19 12:50] LABS: EPI CELLS 2 /uL (0-25.1); HYALINE CASTS 0 /uL (0-3.1); PH,URINE 6.5 (5.0-8.0); URINE APPEARANCE CLOUDY; URINE BACTERIA 6 /uL (0-1359); URINE BILIRUBIN NEGATIVE (NEGATIVE); URINE COLOR YELLOW; URINE GLUCOSE (UA) NEGATIVE (NEGATIVE); URINE KETONE TRACE (NEGATIVE); URINE LEUK ESTERASE TRACE (NEGATIVE); URINE NITRITE NEGATIVE (NEGATIVE); URINE PROTEIN TRACE (NEGATIVE); URINE RBC 65 /uL (0-23.9); URINE WBC 53 /uL (0-25.8)
[2023-12-19] MEDS: ACETAMINOPHEN 1000 MG/100 ML BAG IVPB ONE (13:35)
[2023-12-19 13:41] LABS: BASO % 0.2 % (0-2.0); EOS % 4.1 % (0-4.5); HEMATOCRIT 36.9 % (35.4-49); HEMOGLOBIN 12.4 GM/dL (11.7-16.9); LYMPH % 23.7 % (8-40); MCH 30.5 pg (25.7-33.7); MCHC 33.6 g/dl (32.0-35.9); MEAN CELL VOLUME 90.8 fl (80-96); MEAN PLT VOLUME 8.6 fl (7.5-11.1); MONO % 9.9 % (3.8-10.2); NEUT % 62.1 % (42.8-82.8); PLATELET COUNT 249 10^3/uL (134-434); RBC 4.07 M/mm3 (4.00-5.60); RDW 14.4 % (11.9-15.9); WHITE BLOOD COUNT 6.2 K/mm3 (4.0-10.0)
[2023-12-19 13:48] LABS: INR 0.98 (0.83-1.09); PROTHROMBIN TIME (PATIENT) 11.3 SEC (9.7-13.0)
[2023-12-19] MEDS ORDERED: ACETAMINOPHEN INJECTION 100 ML ONE (13:53)
[2023-12-19 14:08] LABS: POTASSIUM 4.6 mmol/L (3.5-5.1)
[2023-12-19 14:09] LABS: CALCIUM 8.8 mg/dL (8.5-10.1)
[2023-12-19 14:10] LABS: ALBUMIN 3.1 g/dl (3.4-5.0); BLOOD UREA NITROGEN 13.9 mg/dL (7-18)
[2023-12-19 14:13] LABS: CREATININE 0.8 mg/dL (0.55-1.3)
[2023-12-19 14:15] LABS: BILIRUBIN,TOTAL 0.6 mg/dL (0.2-1); TOT PROT 6.2 g/dl (6.4-8.2)
[2023-12-19] MEDS: CEFTRIAXONE 1 GM in DEXTROSE 5%-WATER - 100 ML IVPB ONE (14:20)
[2023-12-19] MEDS ORDERED: CEFTRIAXONE 1 GM/50 ML BAG ONE (15:45)
== END 2023-12-19 19:07 | disposition home or self-care (01) ==
LOC: JER 11:19
PROC: 3E03329 Introduction of Other Anti-infective into Peripheral Vein, Percutaneous Approach (ICD-10-PCS; principal; 2023-12-19)
PROC: 3E033NZ Introduction of Analgesics, Hypnotics, Sedatives into Peripheral Vein, Percutaneous Approach (ICD-10-PCS; 2023-12-19)
DX: R10.33 Periumbilical pain (principal); G89.18 Other acute postprocedural pain; R11.2 Nausea with vomiting, unspecified
CPT/HCPCS: 36415; 74177-TC; 76870-TC; 80053; 81003; 83690; 85025; 85610; 85730; 86850; 86900; 86901; 87086; 93005; 93010; 96365; 96375; 99285-25; J0131

== ENCOUNTER 2023-12-21 12:46 | Emergency (ER) | payer OTHER ==
[2023-12-21 13:03] VITALS: BP 140/88; PULSE 78; RESP 19; TEMP 99.1; BMI 25.0
[2023-12-21 14:08] LABS: EPI CELLS 8 /uL (0-25.1); HYALINE CASTS 2 /uL (0-3.1); URINE APPEARANCE CLEAR; URINE BACTERIA 12 /uL (0-1359); URINE BILIRUBIN 1+ (NEGATIVE); URINE COLOR DK YELLOW; URINE GLUCOSE (UA) NEGATIVE (NEGATIVE); URINE KETONE TRACE (NEGATIVE); URINE LEUK ESTERASE 1+ (NEGATIVE); URINE NITRITE NEGATIVE (NEGATIVE); URINE PROTEIN 1+ (NEGATIVE); URINE WBC 143 /uL (0-25.8)
[2023-12-21 14:17] LABS: URINE RBC 76 /uL (0-23.9)
[2023-12-21] MEDS ORDERED: IBUPROFEN 400 MG TABLET (FP) PO ONE (14:47)
[2023-12-21] MEDS ORDERED: SULFAMETHOXAZOLE/TRIMETHOPRIM 800MG/160MG D.S. TABLET ONE (14:47)
[2023-12-21] MEDS ORDERED: ACETAMINOPHEN 500 MG TABLET (FP) ONE (14:49)
[2023-12-21] MEDS: SULFAMETHOXAZOLE/TRIMETHOPRIM 800MG/160MG D.S. TABLET PO ONE (15:04)
[2023-12-21] MEDS: IBUPROFEN 400 MG TABLET (FP) PO ONE (15:04)
[2023-12-21] MEDS: ACETAMINOPHEN 500 MG TABLET (FP) PO ONE (15:04)
== END 2023-12-21 15:22 | disposition home or self-care (01) ==
LOC: JER 12:46
DX: N39.0 Urinary tract infection, site not specified (principal); R30.0 Dysuria; R10.30 Lower abdominal pain, unspecified
CPT/HCPCS: 81003; 87086; 99283-25

== ENCOUNTER 2023-12-28 10:14 | Emergency (ER) | payer OTHER ==
[2023-12-28 10:21] VITALS: RESP 17; TEMP 98.7; BMI 24.3
[2023-12-28] MEDS ORDERED: ACETAMINOPHEN INJECTION 100 ML ONE (12:15)
[2023-12-28 13:03] LABS: BASO % 0.2 % (0-2.0); EOS % 2.3 % (0-4.5); HEMATOCRIT 40.8 % (35.4-49); HEMOGLOBIN 13.6 GM/dL (11.7-16.9); LYMPH % 16.8 % (8-40); MCH 30.2 pg (25.7-33.7); MCHC 33.3 g/dl (32.0-35.9); MEAN CELL VOLUME 90.7 fl (80-96); MEAN PLT VOLUME 8.4 fl (7.5-11.1); MONO % 6.2 % (3.8-10.2); NEUT % 74.5 % (42.8-82.8); PLATELET COUNT 274 10^3/uL (134-434); RDW 14.7 % (11.9-15.9); WHITE BLOOD COUNT 7.4 K/mm3 (4.0-10.0)
[2023-12-28 13:33] LABS: POTASSIUM 4.6 mmol/L (3.5-5.1)
[2023-12-28 13:36] LABS: ALBUMIN 3.4 g/dl (3.4-5.0); BLOOD UREA NITROGEN 17.8 mg/dL (7-18); MAGNESIUM 2.1 mg/dL (1.8-2.4)
[2023-12-28 13:39] LABS: CREATININE 0.8 mg/dL (0.55-1.3); PHOSPHOROUS 2.6 mg/dL (2.5-4.9)
[2023-12-28 13:41] LABS: BILIRUBIN,TOTAL 0.5 mg/dL (0.2-1); TOT PROT 6.8 g/dl (6.4-8.2)
[2023-12-28 14:25] LABS: BASO % 0.6 % (0-2.0); EOS % 1.9 % (0-4.5); HEMATOCRIT 41.1 % (35.4-49); HEMOGLOBIN 13.5 GM/dL (11.7-16.9); LYMPH % 19.3 % (8-40); MCH 30.3 pg (25.7-33.7); MCHC 32.9 g/dl (32.0-35.9); MEAN CELL VOLUME 92.1 fl (80-96); MEAN PLT VOLUME 9.4 fl (7.5-11.1); MONO % 5.7 % (3.8-10.2); NEUT % 72.5 % (42.8-82.8); PLATELET COUNT 286 10^3/uL (134-434); RBC 4.46 M/mm3 (4.00-5.60); RDW 14.6 % (11.9-15.9); WHITE BLOOD COUNT 8.1 K/mm3 (4.0-10.0)
[2023-12-28] MEDS: ACETAMINOPHEN 1000 MG/100 ML BAG IVPB ONE (15:20)
[2023-12-28 15:34] LABS: POTASSIUM 4.4 mmol/L (3.5-5.1)
[2023-12-28 15:36] LABS: ALBUMIN 3.7 g/dl (3.4-5.0); BLOOD UREA NITROGEN 18.2 mg/dL (7-18); CALCIUM 9.3 mg/dL (8.5-10.1)
[2023-12-28 15:39] LABS: CREATININE 0.9 mg/dL (0.55-1.3)
[2023-12-28 15:41] LABS: BILIRUBIN,TOTAL 0.6 mg/dL (0.2-1); TOT PROT 7.4 g/dl (6.4-8.2)
[2023-12-28 16:39] LABS: EPI CELLS 5 /uL (0-25.1); HYALINE CASTS 1 /uL (0-3.1); URINE APPEARANCE CLEAR; URINE BACTERIA 26 /uL (0-1359); URINE BILIRUBIN NEGATIVE (NEGATIVE); URINE COLOR YELLOW; URINE GLUCOSE (UA) NEGATIVE (NEGATIVE); URINE KETONE NEGATIVE (NEGATIVE); URINE LEUK ESTERASE TRACE (NEGATIVE); URINE NITRITE NEGATIVE (NEGATIVE); URINE PROTEIN TRACE (NEGATIVE); URINE UROBILINOGEN 0.2 mg/dL (0.2-1.0); URINE WBC 51 /uL (0-25.8)
[2023-12-28] MEDS ORDERED: CIPROFLOXACIN 500 MG TABLET (RESTRICTED TO ID) PO ONE (17:23)
[2023-12-28 17:40] VITALS: BP 131/65; PULSE 58
[2023-12-28 18:23] LABS: URINE RBC 35.9 /uL (0-23.9)
== END 2023-12-28 17:52 | disposition home or self-care (01) ==
LOC: JER 10:14
PROC: 3E033NZ Introduction of Analgesics, Hypnotics, Sedatives into Peripheral Vein, Percutaneous Approach (ICD-10-PCS; principal; 2023-12-28)
DX: R10.30 Lower abdominal pain, unspecified (principal); R30.0 Dysuria; K59.00 Constipation, unspecified; K62.89 Other specified diseases of anus and rectum
CPT/HCPCS: 36415; 74177-TC; 80053; 81003; 83735; 84100; 85025; 86850; 86900; 86901; 87086; 93005; 93010; 96374; 99285-25; J0131; Q9967

== ENCOUNTER 2024-01-31 05:07 | Emergency (ER) | payer OTHER ==
[2024-01-31 05:15] VITALS: BP 144/86; PULSE 68; RESP 18; TEMP 98.5; BMI 23.5
[2024-01-31] MEDS ORDERED: MAGNESIUM CITRATE 300 ML BOTTLE ONE (05:47)
[2024-01-31] MEDS: MAGNESIUM CITRATE 300 ML BOTTLE PO ONE (05:51)
[2024-01-31] MEDS: SODIUM PHOSPHATE/NA BIPHOS 133 ML ENEMA PR ONE (07:47)
[2024-01-31 08:07] LABS: EPI CELLS 3 /uL (0-25.1); HYALINE CASTS 0 /uL (0-3.1); PH,URINE 5.5 (5.0-8.0); URINE APPEARANCE CLEAR; URINE BACTERIA 7 /uL (0-1359); URINE BILIRUBIN NEGATIVE (NEGATIVE); URINE COLOR YELLOW; URINE GLUCOSE (UA) NEGATIVE (NEGATIVE); URINE KETONE NEGATIVE (NEGATIVE); URINE LEUK ESTERASE NEGATIVE (NEGATIVE); URINE NITRITE NEGATIVE (NEGATIVE); URINE PROTEIN 1+ (NEGATIVE); URINE RBC 60 /uL (0-23.9); URINE WBC 26 /uL (0-25.8)
[2024-01-31 08:51] LABS: BASO % 0.2 % (0-2.0); EOS % 1.1 % (0-4.5); HEMATOCRIT 42.5 % (35.4-49); HEMOGLOBIN 14.3 GM/dL (11.7-16.9); LYMPH % 30.2 % (8-40); MCH 30.1 pg (25.7-33.7); MCHC 33.6 g/dl (32.0-35.9); MEAN CELL VOLUME 89.4 fl (80-96); MEAN PLT VOLUME 8.2 fl (7.5-11.1); MONO % 10.5 % (3.8-10.2); PLATELET COUNT 297 10^3/uL (134-434); RBC 4.75 M/mm3 (4.00-5.60); RDW 14.3 % (11.9-15.9); WHITE BLOOD COUNT 7.3 K/mm3 (4.0-10.0)
[2024-01-31 09:03] LABS: POTASSIUM 4.2 mmol/L (3.5-5.1)
[2024-01-31 09:05] LABS: ALBUMIN 3.9 g/dl (3.4-5.0); BLOOD UREA NITROGEN 14.9 mg/dL (7-18); CALCIUM 9.2 mg/dL (8.5-10.1)
[2024-01-31 09:09] LABS: CREATININE 0.9 mg/dL (0.55-1.3)
[2024-01-31 09:10] LABS: BILIRUBIN,TOTAL 0.8 mg/dL (0.2-1); TOT PROT 7.4 g/dl (6.4-8.2)
== END 2024-01-31 09:07 | disposition home or self-care (01) ==
LOC: JER 05:07
DX: K59.00 Constipation, unspecified (principal); R30.0 Dysuria; K56.609 Unspecified intestinal obstruction, unspecified as to partial versus complete obstruction; R10.30 Lower abdominal pain, unspecified
CPT/HCPCS: 36415; 80053; 81003; 83605; 85025; 86850; 86900; 86901; 87086; 99283-25

== ENCOUNTER 2024-02-13 08:39 | Observation (INO) | payer OTHER ==
[2024-02-13] MEDS ORDERED: MAGNESIUM CITRATE 300 ML BOTTLE ONE (10:51)
[2024-02-13] MEDS ORDERED: ACETAMINOPHEN INJECTION 100 ML ONE (11:04)
[2024-02-13 11:11] LABS: BASO % 0.3 % (0-2.0); EOS % 0.6 % (0-4.5); HEMATOCRIT 44.9 % (35.4-49); LYMPH % 28.3 % (8-40); MCH 29.9 pg (25.7-33.7); MCHC 33.3 g/dl (32.0-35.9); MEAN CELL VOLUME 89.7 fl (80-96); MEAN PLT VOLUME 8.7 fl (7.5-11.1); MONO % 7.4 % (3.8-10.2); NEUT % 63.4 % (42.8-82.8); PLATELET COUNT 265 10^3/uL (134-434); WHITE BLOOD COUNT 7.4 K/mm3 (4.0-10.0)
[2024-02-13] MEDS: MAGNESIUM CITRATE 300 ML BOTTLE PO ONE (11:16)
[2024-02-13] MEDS: ACETAMINOPHEN 1000 MG/100 ML BAG IVPB ONE ×2 (11:16→23:21)
[2024-02-13 11:38] LABS: POTASSIUM 4.5 mmol/L (3.5-5.1)
[2024-02-13 11:40] LABS: ALBUMIN 3.8 g/dl (3.4-5.0); BLOOD UREA NITROGEN 19.3 mg/dL (7-18); CALCIUM 9.2 mg/dL (8.5-10.1)
[2024-02-13 11:43] LABS: CREATININE 0.9 mg/dL (0.55-1.3)
[2024-02-13 11:45] LABS: BILIRUBIN,TOTAL 0.8 mg/dL (0.2-1); TOT PROT 7.5 g/dl (6.4-8.2)
[2024-02-13] MEDS: MINERAL OIL ENEMA 133 ML ENEMA RC ONE (11:56)
[2024-02-13 13:36] LABS: EPI CELLS 2 /uL (0-25.1); HYALINE CASTS 0 /uL (0-3.1); PH,URINE 5.5 (5.0-8.0); URINE APPEARANCE CLEAR; URINE BACTERIA 65 /uL (0-1359); URINE BILIRUBIN NEGATIVE (NEGATIVE); URINE COLOR YELLOW; URINE GLUCOSE (UA) NEGATIVE (NEGATIVE); URINE KETONE NEGATIVE (NEGATIVE); URINE LEUK ESTERASE NEGATIVE (NEGATIVE); URINE NITRITE NEGATIVE (NEGATIVE); URINE PROTEIN NEGATIVE (NEGATIVE); URINE RBC 97 /uL (0-23.9)
[2024-02-13] MEDS: LACTATED RINGERS SOLUTION 1,000 ML/1,000 ML INFUS.BAG IV SCH (16:48)
[2024-02-13] MEDS: POLYETHYLENE GLYCOL (HEALTHYLAX) 3350 17 GM PACKET PO SCH (17:55)
[2024-02-13 18:03] LABS: URINE WBC 250.1 /uL (0-25.8)
[2024-02-13] MEDS ORDERED: ACETAMINOPHEN 325 MG TABLET (FP) PO PRN (18:56)
[2024-02-13] MEDS ORDERED: oxyCODONE HCL 5 MG TABLET PO PRN (18:56)
[2024-02-13] MEDS ORDERED: BISACODYL 10 MG SUPP.RECT RC PRN (18:56)
[2024-02-13 19:00] VITALS: BMI 25.4
[2024-02-13] MEDS: TAMSULOSIN HCL 0.4 MG CAP PO SCH (21:54)
[2024-02-13] MEDS: GABAPENTIN 300 MG CAPSULE PO SCH (21:54)
[2024-02-14] MEDS: SENNOSIDES 8.6MG TABLET (FP) PO SCH (09:30)
[2024-02-14] MEDS: PANTOPRAZOLE 40 MG TABLET PO SCH (09:30)
[2024-02-14] MEDS: MULTIVITAMINS (DAILY MVI) TABLET (FP) PO SCH (09:30)
[2024-02-14] MEDS: LOSARTAN POTASSIUM 50 MG TABLET PO SCH (09:40)
[2024-02-14] MEDS: DOCUSATE SODIUM 100 MG CAPSULE (FP) PO PRN (10:25)
[2024-02-14 12:09] LABS: HEMATOCRIT 39.6 % (35.4-49); HEMOGLOBIN 13.4 GM/dL (11.7-16.9); MCH 30.4 pg (25.7-33.7); MCHC 33.8 g/dl (32.0-35.9); MEAN PLT VOLUME 9.2 fl (7.5-11.1); PLATELET COUNT 212 10^3/uL (134-434); RDW 14.4 % (11.9-15.9)
[2024-02-14 12:20] LABS: POTASSIUM 4.4 mmol/L (3.5-5.1)
[2024-02-14 12:21] LABS: CALCIUM 8.4 mg/dL (8.5-10.1)
[2024-02-14 12:22] LABS: BLOOD UREA NITROGEN 15.9 mg/dL (7-18); MAGNESIUM 2.4 mg/dL (1.8-2.4)
[2024-02-14 12:25] LABS: PHOSPHOROUS 2.3 mg/dL (2.5-4.9)
[2024-02-14] MEDS: PEG 3350/NA SULF BICARB CL/KCL 4000 ML SOLN.RECON PO ONE (15:49)
[2024-02-14] MEDS: NAPH,MB-DB/K PH,MBDB POWDER PACKET PO SCH (21:48)
[2024-02-15] MEDS: metroNIDAZOLE 250 MG TABLET PO SCH (14:13)
[2024-02-15] MEDS: SODIUM PHOSPHATE IVPB ONE (21:50)
[2024-02-15] MEDS: DEXTROSE IVPB ONE (21:50)
[2024-02-15] MEDS: WATER IVPB ONE (21:50)
[2024-02-15 23:23] VITALS: RESP 17
[2024-02-16 11:28] LABS: BASO % 0.1 % (0-2.0); EOS % 0.6 % (0-4.5); HEMATOCRIT 44.4 % (35.4-49); LYMPH % 24.3 % (8-40); MCH 30.1 pg (25.7-33.7); MCHC 33.7 g/dl (32.0-35.9); MEAN CELL VOLUME 89.2 fl (80-96); MEAN PLT VOLUME 8.4 fl (7.5-11.1); MONO % 7.6 % (3.8-10.2); NEUT % 67.4 % (42.8-82.8); PLATELET COUNT 240 10^3/uL (134-434); RBC 4.98 M/mm3 (4.00-5.60); RDW 14.5 % (11.9-15.9); WHITE BLOOD COUNT 6.9 K/mm3 (4.0-10.0)
[2024-02-16 11:42] LABS: POTASSIUM 4.6 mmol/L (3.5-5.1)
[2024-02-16 11:44] LABS: ALBUMIN 3.9 g/dl (3.4-5.0); BLOOD UREA NITROGEN 12.1 mg/dL (7-18); CALCIUM 9.4 mg/dL (8.5-10.1)
[2024-02-16 11:49] LABS: PHOSPHOROUS 3.2 mg/dL (2.5-4.9)
[2024-02-16 11:50] LABS: BILIRUBIN,TOTAL 1.1 mg/dL (0.2-1); TOT PROT 7.4 g/dl (6.4-8.2)
[2024-02-16] MEDS: PATIENT'S OWN MEDICATION (NON-FORMULARY) (Linaclotide [Linzess] 290 MCG Capsule) PO SCH (14:06)
[2024-02-16 14:39] VITALS: BP 130/85; PULSE 64; TEMP 99.3
== END 2024-02-16 14:50 | disposition home or self-care (01) ==
LOC: JER 08:39 → JERBED 14:35 → J5S 16:04
PROVIDERS: ADMIT Internal Medicine; ATTEND Internal Medicine
PROC: 3E033NZ Introduction of Analgesics, Hypnotics, Sedatives into Peripheral Vein, Percutaneous Approach (ICD-10-PCS; principal; 2024-02-13)
PROC: 3E033GC Introduction of Other Therapeutic Substance into Peripheral Vein, Percutaneous Approach (ICD-10-PCS; 2024-02-13)
DX: K59.00 Constipation, unspecified (principal); R10.32 Left lower quadrant pain; I10 Essential (primary) hypertension; E78.5 Hyperlipidemia, unspecified; N40.0 Benign prostatic hyperplasia without lower urinary tract symptoms; G62.9 Polyneuropathy, unspecified; F06.8 Other specified mental disorders due to known physiological condition; M54.50 Low back pain, unspecified; K21.9 Gastro-esophageal reflux disease without esophagitis
CPT/HCPCS: 36415; 74018-TC-FY; 74019-TC-FY; 74177-TC; 80048; 80053; 81003; 82977; 83605; 83735; 84100; 84443; 85025; 85027; 87086; 93005; 93010; 96365; 96375; 96376; 99285-25; G0378; J0131; Q9967

== ENCOUNTER 2024-02-19 11:46 | Emergency (ER) | payer OTHER ==
[2024-02-19 12:12] VITALS: BP 136/85; PULSE 63; RESP 16; TEMP 99; BMI 25.0
== END 2024-02-19 15:21 | disposition home or self-care (01) ==
LOC: JER 11:46
DX: K59.09 Other constipation (principal); R10.32 Left lower quadrant pain
CPT/HCPCS: 99283-25

== ENCOUNTER 2024-03-21 13:47 | Emergency (ER) | payer OTHER ==
[2024-03-21 14:02] VITALS: BP 143/82; PULSE 59; RESP 18; TEMP 98.4; BMI 26.6
== END 2024-03-21 15:57 | disposition home or self-care (01) ==
LOC: JER 13:47
DX: K59.00 Constipation, unspecified (principal)
CPT/HCPCS: 99283-25

== ENCOUNTER 2024-03-25 23:15 | Emergency (ER) | payer OTHER ==
[2024-03-25 23:23] VITALS: BP 126/86; PULSE 60; RESP 20; TEMP 99; BMI 26.6
[2024-03-26] MEDS ORDERED: KETOROLAC TROMETHAMINE 30 MG/1 ML VIAL ONE (00:38)
[2024-03-26] MEDS: KETOROLAC TROMETHAMINE 30 MG/1 ML VIAL IM ONE (00:43)
[2024-03-26 00:46] LABS: EPI CELLS 5 /uL (0-25.1); HYALINE CASTS 3 /uL (0-3.1); URINE APPEARANCE CLEAR; URINE BACTERIA 11 /uL (0-1359); URINE BILIRUBIN NEGATIVE (NEGATIVE); URINE COLOR YELLOW; URINE GLUCOSE (UA) NEGATIVE (NEGATIVE); URINE KETONE TRACE (NEGATIVE); URINE LEUK ESTERASE NEGATIVE (NEGATIVE); URINE NITRITE NEGATIVE (NEGATIVE); URINE PROTEIN 1+ (NEGATIVE); URINE RBC 104 /uL (0-23.9)
[2024-03-26 01:03] LABS: URINE WBC 84.9 /uL (0-25.8)
== END 2024-03-26 01:45 | disposition home or self-care (01) ==
LOC: JER 23:15
PROC: 3E0233Z Introduction of Anti-inflammatory into Muscle, Percutaneous Approach (ICD-10-PCS; principal; 2024-03-26)
DX: N13.2 Hydronephrosis with renal and ureteral calculous obstruction (principal); R10.30 Lower abdominal pain, unspecified
CPT/HCPCS: 81003; 96372; 99284-25

== ENCOUNTER 2024-04-20 06:54 | Observation (INO) | payer OTHER ==
[2024-04-20] MEDS ORDERED: POLYETHYLENE GLYCOL (HEALTHYLAX) 3350 17 GM PACKET ONE (08:19)
[2024-04-20] MEDS: BISACODYL 5 MG TABLET.DR (FP) PO ONE (08:25)
[2024-04-20] MEDS: MINERAL OIL ENEMA 133 ML ENEMA RC ONE (08:25)
[2024-04-20 08:29] LABS: BASO % 0.2 % (0-2.0); EOS % 1.1 % (0-4.5); HEMATOCRIT 41.3 % (35.4-49); HEMOGLOBIN 13.8 GM/dL (11.7-16.9); LYMPH % 22.1 % (8-40); MCH 29.7 pg (25.7-33.7); MCHC 33.5 g/dl (32.0-35.9); MEAN CELL VOLUME 88.6 fl (80-96); MEAN PLT VOLUME 8.1 fl (7.5-11.1); MONO % 7.6 % (3.8-10.2); PLATELET COUNT 241 10^3/uL (134-434); RBC 4.66 M/mm3 (4.00-5.60); RDW 15.1 % (11.9-15.9); WHITE BLOOD COUNT 7.9 K/mm3 (4.0-10.0)
[2024-04-20 08:34] LABS: PROTHROMBIN TIME (PATIENT) 10.9 SEC (9.7-13.0)
[2024-04-20] MEDS: POLYETHYLENE GLYCOL (HEALTHYLAX) 3350 17 GM PACKET PO ONE (08:39)
[2024-04-20 08:42] LABS: EPI CELLS 2 /uL (0-25.1); HYALINE CASTS 0 /uL (0-3.1); PH,URINE 5.5 (5.0-8.0); URINE APPEARANCE CLEAR; URINE BILIRUBIN NEGATIVE (NEGATIVE); URINE COLOR YELLOW; URINE GLUCOSE (UA) NEGATIVE (NEGATIVE); URINE KETONE NEGATIVE (NEGATIVE); URINE LEUK ESTERASE TRACE (NEGATIVE); URINE NITRITE POSITIVE (NEGATIVE); URINE PROTEIN NEGATIVE (NEGATIVE); URINE RBC 15 /uL (0-23.9); URINE WBC 42 /uL (0-25.8)
[2024-04-20 08:50] LABS: POTASSIUM 4.8 mmol/L (3.5-5.1)
[2024-04-20 08:52] LABS: CALCIUM 8.8 mg/dL (8.5-10.1)
[2024-04-20 08:53] LABS: ALBUMIN 3.4 g/dl (3.4-5.0); BLOOD UREA NITROGEN 17.5 mg/dL (7-18); MAGNESIUM 2.2 mg/dL (1.8-2.4)
[2024-04-20 08:55] LABS: CREATININE 0.9 mg/dL (0.55-1.3)
[2024-04-20 08:57] LABS: BILIRUBIN,TOTAL 0.6 mg/dL (0.2-1); TOT PROT 6.6 g/dl (6.4-8.2)
[2024-04-20] MEDS ORDERED: CEFTRIAXONE 1 G/50 ML PREMIX 50 ML IVPB ONE (09:55)
[2024-04-20] MEDS: CEFTRIAXONE 1,000 MG in DEXTROSE 5%-WATER - 50 ML IVPB ONE (10:06)
[2024-04-20 10:19] LABS: URINE BACTERIA 207 /uL (0-1359); YEAST NONE SEEN (NEGATIVE)
[2024-04-20] MEDS ORDERED: LIDOCAINE HCL/PF 2% SDV 5ML VIAL ONE (16:11)
[2024-04-20] MEDS ORDERED: PROPOFOL 20 ML ONE (16:11)
[2024-04-20] MEDS ORDERED: MIDAZOLAM HCL 2 MG/2 ML SINGLE DOSE VIAL ONE (16:12)
[2024-04-20] MEDS ORDERED: GENTAMICIN SO4 80 MG/2 ML VIAL ONE (16:22)
[2024-04-20] MEDS: GENTAMICIN SO4 80 MG/2 ML VIAL IVPB ONE (16:25)
[2024-04-20] MEDS ORDERED: ONDANSETRON 4 MG/2 ML VIAL IVPUSH PRN ×2 (16:42→16:59)
[2024-04-20] MEDS ORDERED: ACETAMINOPHEN INJECTION 100 ML ONE (17:10)
[2024-04-20] MEDS: ACETAMINOPHEN 1000 MG/100 ML BAG IVPB ONE (17:10)
[2024-04-20] MEDS: DEXTROSE 5%-0.45% SALINE 1,000 ML IV SCH (17:14)
[2024-04-20 18:48] VITALS: BMI 27.6
[2024-04-20] MEDS: POLYETHYLENE GLYCOL (HEALTHYLAX) 3350 17 GM PACKET PO SCH (20:12)
[2024-04-20] MEDS ORDERED: SENNOSIDES 8.6MG TABLET (FP) PO SCH (22:00)
[2024-04-20] MEDS ORDERED: DOCUSATE SODIUM 100 MG CAPSULE (FP) PO SCH (22:00)
[2024-04-20] MEDS ORDERED: LACTULOSE 20 GM/30 ML UDC (FOR ORAL USE ONLY) PO SCH (22:00)
[2024-04-20] MEDS: SENNOSIDES 8.6MG TABLET (FP) PO SCH (22:17)
[2024-04-20] MEDS: DOCUSATE SODIUM 100 MG CAPSULE (FP) PO SCH (22:17)
[2024-04-20] MEDS: LACTULOSE 20 GM/30 ML UDC (FOR ORAL USE ONLY) PO SCH (22:17)
[2024-04-20] MEDS: oxyCODONE HCL 5 MG TABLET PO PRN (22:52)
[2024-04-21] MEDS ORDERED: TAMSULOSIN HCL 0.4 MG CAP PO SCH (08:30)
[2024-04-21 08:38] LABS: BASO % 0.1 % (0-2.0); EOS % 0.1 % (0-4.5); HEMATOCRIT 39.1 % (35.4-49); HEMOGLOBIN 13.4 GM/dL (11.7-16.9); LYMPH % 12.9 % (8-40); MCH 30.2 pg (25.7-33.7); MCHC 34.3 g/dl (32.0-35.9); MEAN CELL VOLUME 88.1 fl (80-96); MEAN PLT VOLUME 8.4 fl (7.5-11.1); MONO % 9.7 % (3.8-10.2); NEUT % 77.2 % (42.8-82.8); PLATELET COUNT 229 10^3/uL (134-434); RBC 4.44 M/mm3 (4.00-5.60); RDW 14.9 % (11.9-15.9)
[2024-04-21] MEDS: TAMSULOSIN HCL 0.4 MG CAP PO SCH (08:39)
[2024-04-21 08:49] LABS: POTASSIUM 4.3 mmol/L (3.5-5.1)
[2024-04-21 08:54] LABS: ALBUMIN 3.3 g/dl (3.4-5.0); BLOOD UREA NITROGEN 13.7 mg/dL (7-18); CALCIUM 8.5 mg/dL (8.5-10.1)
[2024-04-21 08:59] LABS: BILIRUBIN,TOTAL 1.3 mg/dL (0.2-1); TOT PROT 6.3 g/dl (6.4-8.2)
[2024-04-21] MEDS ORDERED: CEFTRIAXONE 1 G/50 ML PREMIX 50 ML IVPB SCH (10:00)
[2024-04-21] MEDS ORDERED: POLYETHYLENE GLYCOL 3350 255 GM BTL PO SCH (10:00)
[2024-04-21] MEDS ORDERED: LOSARTAN POTASSIUM 50 MG TABLET PO SCH (10:00)
[2024-04-21] MEDS: LOSARTAN POTASSIUM 50 MG TABLET PO SCH (10:12)
[2024-04-21] MEDS: CEFTRIAXONE 1 G/50 ML PREMIX 50 ML IVPB SCH (10:13)
[2024-04-21] MEDS: POLYETHYLENE GLYCOL (HEALTHYLAX) 3350 17 GM PACKET PO SCH (10:13)
[2024-04-22] MEDS: ACETAMINOPHEN 325 MG TABLET (FP) PO PRN (01:21)
[2024-04-22 08:43] LABS: BASO % 0.2 % (0-2.0); EOS % 1.3 % (0-4.5); HEMATOCRIT 38.8 % (35.4-49); HEMOGLOBIN 12.7 GM/dL (11.7-16.9); LYMPH % 23.1 % (8-40); MCH 29.5 pg (25.7-33.7); MCHC 32.7 g/dl (32.0-35.9); MEAN PLT VOLUME 8.4 fl (7.5-11.1); MONO % 15.4 % (3.8-10.2); PLATELET COUNT 219 10^3/uL (134-434); RBC 4.32 M/mm3 (4.00-5.60); RDW 15.1 % (11.9-15.9); WHITE BLOOD COUNT 6.8 K/mm3 (4.0-10.0)
[2024-04-22 09:07] LABS: POTASSIUM 4.6 mmol/L (3.5-5.1)
[2024-04-22 09:21] LABS: BLOOD UREA NITROGEN 12.1 mg/dL (7-18); CALCIUM 8.6 mg/dL (8.5-10.1)
[2024-04-22 09:22] LABS: ALBUMIN 2.9 g/dl (3.4-5.0)
[2024-04-22 09:24] LABS: CREATININE 0.9 mg/dL (0.55-1.3)
[2024-04-22 09:25] LABS: BILIRUBIN,TOTAL 1.2 mg/dL (0.2-1); TOT PROT 5.9 g/dl (6.4-8.2)
[2024-04-22] MEDS ORDERED: SUCCINYLCHOLINE CHLORIDE 200 MG/10 ML SYRINGE ONE (11:24)
[2024-04-22] MEDS ORDERED: PROPOFOL 40 ML ONE (11:24)
[2024-04-22] MEDS ORDERED: MIDAZOLAM HCL 2 MG/2 ML SINGLE DOSE VIAL ONE (11:26)
[2024-04-22] MEDS ORDERED: LACTATED RINGERS SOLUTION 1,000 ML IV SCH (12:15)
[2024-04-22] MEDS: DEXTROSE 5%-0.45% SALINE 1,000 ML IV SCH (12:54)
[2024-04-22] MEDS ORDERED: BENZOIN/ALOE VERA/STORAX/TOLU 58 ML BOTTLE ONE (13:06)
[2024-04-22] MEDS ORDERED: POLYETHYLENE GLYCOL (HEALTHYLAX) 3350 17 GM PACKET PO SCH (14:00)
[2024-04-22] MEDS: POLYETHYLENE GLYCOL (HEALTHYLAX) 3350 17 GM PACKET PO SCH (14:50)
[2024-04-22] MEDS: oxyCODONE HCL 5 MG TABLET PO PRN (17:20)
[2024-04-22 19:41] VITALS: RESP 18
[2024-04-22] MEDS: LACTULOSE 20 GM/30 ML UDC (FOR ORAL USE ONLY) PO SCH (21:31)
[2024-04-22] MEDS: SENNOSIDES 8.6MG TABLET (FP) PO SCH (21:31)
[2024-04-22] MEDS: DOCUSATE SODIUM 100 MG CAPSULE (FP) PO SCH (21:31)
[2024-04-23] MEDS: LOSARTAN POTASSIUM 50 MG TABLET PO SCH (09:38)
[2024-04-23] MEDS: TAMSULOSIN HCL 0.4 MG CAP PO SCH (09:38)
[2024-04-23] MEDS: ACETAMINOPHEN 325 MG TABLET (FP) PO PRN (09:38)
[2024-04-23] MEDS ORDERED: CEFTRIAXONE 1 G/50 ML PREMIX 50 ML IVPB SCH (10:00)
[2024-04-23 11:00] VITALS: BP 165/78; PULSE 65; TEMP 99
[2024-04-23] MEDS: CEPHALEXIN MONOHYDRATE 500 MG CAPSULE (UD) PO SCH (13:03)
== END 2024-04-23 15:09 | disposition home or self-care (01) ==
LOC: JER 06:54 → JERBED 12:50 → UNDOADMOB 12:50 → INTOOBSV 16:08 → OBSVTOIN 16:08 → JERBED 18:10 → J8W 18:23
PROVIDERS: ADMIT Family Medicine; ATTEND Family Medicine
PROC: 0T777DZ Dilation of Left Ureter with Intraluminal Device, Via Natural or Artificial Opening (ICD-10-PCS; 2024-04-20)
PROC: 3E033NZ Introduction of Analgesics, Hypnotics, Sedatives into Peripheral Vein, Percutaneous Approach (ICD-10-PCS; 2024-04-20)
PROC: 0TC77ZZ Extirpation of Matter from Left Ureter, Via Natural or Artificial Opening (ICD-10-PCS; principal; 2024-04-20 16:00)
PROC: 0TC78ZZ Extirpation of Matter from Left Ureter, Via Natural or Artificial Opening Endoscopic (ICD-10-PCS; 2024-04-22)
PROC: 0T777DZ Dilation of Left Ureter with Intraluminal Device, Via Natural or Artificial Opening (ICD-10-PCS; 2024-04-22)
PROC: 0TP97DZ Removal of Intraluminal Device from Ureter, Via Natural or Artificial Opening (ICD-10-PCS; 2024-04-22)
DX: N13.1 Hydronephrosis with ureteral stricture, not elsewhere classified (principal); N20.1 Calculus of ureter; N39.0 Urinary tract infection, site not specified; N40.0 Benign prostatic hyperplasia without lower urinary tract symptoms; N31.9 Neuromuscular dysfunction of bladder, unspecified; I10 Essential (primary) hypertension; K59.04 Chronic idiopathic constipation; K31.84 Gastroparesis; Z87.891 Personal history of nicotine dependence; E78.5 Hyperlipidemia, unspecified; G40.909 Epilepsy, unspecified, not intractable, without status epilepticus; R31.9 Hematuria, unspecified
CPT/HCPCS: 50385; 52356; 96361; 96365; 96366; 96375; C1747; 36415; 74177-TC; 76000-TC-FY; 80053; 81003; 83605; 83690; 83735; 85025; 85610; 85730; 87086; 87186; 94760; 99285-25; C1758; C2617; C2625; G0378; J0131; Q9967

== ENCOUNTER 2024-05-05 10:08 | Emergency (ER) | payer OTHER ==
[2024-05-05 10:17] VITALS: BP 157/83; PULSE 64; RESP 18; TEMP 98.1; BMI 26.6
[2024-05-05] MEDS ORDERED: MAGNESIUM CITRATE 300 ML BOTTLE PO ONE (11:43)
[2024-05-05] MEDS ORDERED: MAGNESIUM CITRATE 300 ML BOTTLE ONE (12:01)
== END 2024-05-05 13:00 | disposition left against medical advice (07) ==
LOC: JER 10:08
DX: K59.00 Constipation, unspecified (principal)
CPT/HCPCS: 99283-25

== ENCOUNTER → 2024-05-07 | Emergency (ER) | payer OTHER ==
[2024-05-07 08:07] VITALS: BP 160/93; PULSE 66; RESP 16; TEMP 99; BMI 26.6
[2024-05-07] MEDS: SULFAMETHOXAZOLE/TRIMETHOPRIM 800MG/160MG D.S. TABLET PO ONE (09:30)
== END | disposition left against medical advice (07) ==
LOC: JER 08:01
DX: K59.00 Constipation, unspecified (principal); R10.84 Generalized abdominal pain; N39.0 Urinary tract infection, site not specified; R53.81 Other malaise; R68.83 Chills (without fever)
CPT/HCPCS: 99283-25

== ENCOUNTER 2024-09-16 08:01 | Emergency (ER) | payer OTHER ==
[2024-09-16 08:17] VITALS: BMI 28.1
[2024-09-16 08:36] VITALS: TEMP 97.9
[2024-09-16 09:50] LABS: ABSOLUTE IMMATURE GRANULOCYTES 0.03 x10^3/uL (0.0-0.031); BASOPHILS # 0.02 x10^3/uL (0.01-0.08); EOSINOPHIL % 0.7 % (0.8-7.0); EOSINOPHILS # 0.06 x10^3/uL (0.04-0.54); MCHC 32.5 g/dl (32.3-36.5); MEAN CELL VOLUME 90.2 fl (79.0-92.2); MEAN PLT VOLUME 10.0 fl (9.4-12.4); MONOCYTE # 0.62 x10^3/uL (0.30-0.82); MONOCYTE % 7.7 % (5.3-12.2); RDW 13.4 % (12.2-16.1)
[2024-09-16 09:55] LABS: EPI CELLS 6 /uL (0-25.1); HYALINE CASTS 1 /uL (0-3.1); URINE APPEARANCE CLEAR; URINE BACTERIA >9,000 /uL (0-1359); URINE BILIRUBIN NEGATIVE (NEGATIVE); URINE COLOR YELLOW; URINE GLUCOSE (UA) NEGATIVE (NEGATIVE); URINE KETONE NEGATIVE (NEGATIVE); URINE LEUK ESTERASE 1+ (NEGATIVE); URINE NITRITE POSITIVE (NEGATIVE); URINE PROTEIN NEGATIVE (NEGATIVE); URINE RBC 11 /uL (0-23.9); URINE UROBILINOGEN 0.2 mg/dL (0.2-1.0); URINE WBC 81 /uL (0-25.8)
[2024-09-16 10:24] LABS: GLUCOSE,RANDOM 93.0 mg/dL (74-106)
[2024-09-16 10:25] LABS: CO2 27.0 mmol/L (21-32)
[2024-09-16 10:27] LABS: CREATININE 0.93 mg/dL (0.55-1.3); SGOT/AST 13.0 U/L (15-37); SGPT/ALT 14.0 U/L (13-61)
[2024-09-16 10:29] LABS: TOT PROT 6.7 g/dl (6.4-8.2)
[2024-09-16 10:31] LABS: ALK PHOS 108.0 U/L (45-117)
[2024-09-16 12:37] VITALS: BP 155/83; PULSE 58; RESP 20
[2024-09-16 16:43] LABS: HIV INTERPRETATION NEGATIVE (NEGATIVE)
[2024-09-16 16:45] LABS: HCV DIAGNOSTIC IN-HOUSE W/RFLX NON-REACTIVE (NONREACTIVE)
== END 2024-09-16 13:45 | disposition home or self-care (01) ==
LOC: JER 08:01
DX: K59.00 Constipation, unspecified (principal); N30.01 Acute cystitis with hematuria; R10.33 Periumbilical pain; R50.9 Fever, unspecified
CPT/HCPCS: 36415; 74176-TC; 80053; 81003; 83690; 85025; 86803; 87086; 87389; 99284-25